=== PATIENT | male | born 1950 | race Caucasian/White ===

== ENCOUNTER → 2018-07-16 | Outpatient (CLI) | payer MEDICARE ==
[2015-09-23 10:52] VITALS: BMI 33.6
[~2018-07-16] MED LIST: ASPI-757 PO; CELE-1 PO; HYDR-318 PO; HYDR-385 PO; HYDR-653 PO; LISI20TA29 PO; METF-450 PO; METO25TA23 PO; METO25TA93 PO; ORAL DIABETES MED
--- NOTE | 2018-07-16 17:03 | RADIOLOGY IMAGING REPORT ---
FACILITY: [facility] [place] PATIENT NAME: Natalio Farris : 1950 MR: [id number] V: [id number] EXAM DATE: ORDERING PHYSICIAN: DEIRDRE VARGAS TECHNOLOGIST: Location: [facility] Patient: Natalio Farris : 1950 Visit/Account:[id number] Date of Sevice: 07/16/2018 Exam type: ACUTE ABDOMEN SERIES 3 VIEW History: Left-sided abdomen pain, no known injury Comparison: Two view chest August 21, 2015. Findings: There is a mild to moderate amount of fecal material seen throughout colon which can be seen with con stipation. Remainder the bowel gas pattern is nonspecific. There is no evidence of free air beneath hemidiaphragms. No evidence of organomegaly. Just to the left of the L4 vertebral body there is a 3 cm rim calcification of uncertain etiology.. There are mild to moderate spondylotic changes of the thoracolumbar spine. PA view the chest reveals a small amount of platelike atelectasis in the left lung base. No evidence of acute pulmonary infiltrates, pleural effusions or pulmonary edema. Cardiac silhouette is normal in size. IMPRESSION: 1. Mild to moderate amount of fecal material seen throughout colon which can be seen with constipati on There is a 3 cm rim calcification of uncertain etiology projecting just to left of the L4 vertebral b mekhi. This could represent a vascular calcification or calcified mass. Small amount of platelike atelectasis in the left lung base Report Dictated By: Cyndi Stephenson MD at 07/16/2018 4:53 PM Report E-Signed By: Cyndi Stephenson MD at 07/16/2018 4:59 PM WSN:[email or web address]
== END ==
LOC: RAD 12:02
PROVIDERS: ATTEND Family Medicine
DX: J98.11 Atelectasis (principal); R10.817 Generalized abdominal tenderness; M51.87 Other intervertebral disc disorders, lumbosacral region
CPT/HCPCS: 74022

== ENCOUNTER 2018-08-12 07:07 | Emergency (ER) | payer MEDICARE ==
[2015-09-23 10:52] VITALS: Wt 104.3 kg
[2018-08-12] MEDS ORDERED: ONDANSETRON 4 MG/2 ML VIAL IVP ONE (07:40)
[2018-08-12] MEDS ORDERED: NS(*) 0.9% 1000 ML BAG 1,000 ML IV ONE ×2 (07:40→09:45)
[2018-08-12 07:46] LABS: PLATELET COUNT, AUTOMATED 333 K/uL (150-450)
--- NOTE | 2018-08-12 07:59 | ER Report ---
History and Physical Time Seen By MD: 07:25 Hx. of Stated Complaint: ozempic med dc'd 2 weeks ago, pt continues to be sick to stomach, poor appetite fevers nausea, constipation and fatigue. 2 days ago last bm. pain ruq abdo. HPI/ROS CHIEF COMPLAINT: Abdominal pain HISTORY OF PRESENT ILLNESS: 68-year-old male diabetic, hypertension, hyperlipidemia, was trialed on Ozempic (semaglutide) but reacted to the injection and stopped 2 weeks ago. He has had 2 weeks of ongoing abdominal pain. Pain is right upper quadrant, does not radiate, has been constant for 2 weeks, is dull and achy, is 5 out of 10, and patient notes no exacerbating or relieving factors. Specifically he states he does not notice a difference when eating. However, patient has been eating very little and primarily soups. This is because of nausea and vomiting. He has had ongoing nausea since soon after abdominal pain started he is had a couple episodes of vomiting, most recently one week ago. Vomiting was nonbloody and nonbilious. Patient has had overall decreased appetite. He was told he had significant constipation and has been taking stool softeners, thus has loose stools that are nonbloody nonblack. He also has noted chills and fever over the past 2 days. This morning he was doing some work when he felt sweaty, nauseous, and fatigued, therefore he presented for further evaluation. He has had no prior abdominal surgeries. He has never had a colonoscopy. He has no known family history of a significant abdominal illness. He denies tobacco use. He admits to alcohol only approximately once weekly. REVIEW OF SYSTEMS: Constitutional: above Eyes: No discharge. ENT: No sore throat. Cardiovascular: No chest pain, no palpitations. Respiratory: No cough, no shortness of breath. Gastrointestinal: above Genitourinary: no dysuria, no change in urination Musculoskeletal: No back pain. Skin: No rashes. Neurological: No headache. Remainder of the 14 system rev: Yes Allergies: Coded Allergies: No Known Drug Allergies (Unverified , 09/15/15) Home Meds Reported Medications Metformin Hcl (METFORMIN HCL) 500 Mg Tablet, 1 TAB PO BID, TAB 09/15/15 Lisinopril (LISINOPRIL) 20 Mg Tablet, 20 MG PO QDAY, TAB 09/15/15 Metoprolol Tartrate (METOPROLOL TARTRATE) 25 Mg Tablet, 2 TAB PO BID, TAB 09/15/15 Discontinued Reported Medications Celecoxib (CELEBREX) 200 Mg Capsule, 200 MG PO BID, CAPSULE TAKE WITH FOOD 09/24/15 Hydrocodone/Acetaminophen (Lortab 7.5-325 mg Tablet) 1 Each Tablet, 1-2 TAB PO Q4-6H PRN for PAIN, #80 09/24/15 Discontinued Scripts Aspirin (ASPIRIN) 325 Mg Tablet, 325 MG PO QDAY, #30 TAB Prov:IRIS HUSSEIN MD 09/24/15 Reviewed Nurses Notes: Yes Old Medical Records Reviewed: Yes Hx Smoking: No Smoking Status: Never Smoker Exposure to Second Hand Smoke?: No Hx Substance Use Disorder: No Hx Alcohol Use: Yes (occ) Constitutional Vital Sign - Last 24 Hours 08/12/18 08/12/18 08/12/18 08/12/18 07:12 07:15 07:22 07:30 Temp 98.4 Pulse 83 81 Resp 16 12 B/P (MAP) 106/70 106/70 (82) 101/70 (80) Pulse Ox 91 90 O2 Delivery Room Air 08/12/18 08/12/18 08/12/18 08/12/18 07:52 07:57 08:00 08:12 Pulse 77 77 75 Resp 11 8 6 B/P (MAP) 89/51 (64) Pulse Ox 89 89 95 08/12/18 08/12/18 08/12/18 08/12/18 08:13 08:20 08:27 08:40 Pulse 73 Resp 15 B/P (MAP) 96/58 (71) 103/67 (79) Pulse Ox 95 O2 Flow Rate 2.0 08/12/18 08/12/18 08/12/18 08/12/18 08:42 08:57 09:00 09:12 Pulse 73 73 72 Resp 12 18 17 B/P (MAP) 105/65 (78) Pulse Ox 96 96 96 08/12/18 08/12/18 08/12/18 08/12/18 09:20 09:27 09:40 09:42 Pulse 74 71 Resp 9 5 B/P (MAP) 105/72 (83) 111/66 (81) Pulse Ox 95 94 08/12/18 10:43 Temp 99.0 Physical Exam General Appearance: The patient is alert, has no immediate need for airway protection and no signs of toxicity. = Eyes: Pupils equal and round no pallor or injection. ENT, Mouth: Mucous membranes are moist. Respiratory: There are no retractions, lungs are clear to auscultation. Cardiovascular: Regular rate and rhythm. Gastrointestinal: abdomen is mildly distended. Pt has ruq ttp with equivocal limon's. He also has rmq, rlq ttp with fullness. No l sided ttp. BS diminished Neurological: alert, moves all ext Skin: Warm and dry, no rashes. Musculoskeletal: Extremities are nontender, nonswollen and have full range of motion. DIFFERENTIAL DIAGNOSIS: After history and physical exam differential diagnosis was considered for abdominal pain including but not limited to appendicitis, cholecystitis, gastritis and urinary tract infection.chest pain including but not limited to myocardial ischemia, pericarditis pulmonary embolus, chest wall pain, pleural inflammation and pulmonary infectious causes. Medical Decision Making Data Points Result Diagram: 08/12/18 0739 08/12/18 0739 Laboratory Hematology Test 08/12/18 07:14 08/12/18 07:39 08/12/18 11:13 Urine Color Jenelle Urine Clarity Cloudy Urine pH 5.0 pH (4.8-9.5) Urine Specific [place] 1.019 Urine Protein 100 mg/dL (NEGATIVE) Urine Glucose (UA) 50 mg/dL (NEGATIVE) Urine Ketones Negative mg/dL (NEGATIVE) Urine Blood Negative (NEGATIVE) Urine Nitrite Negative (NEGATIVE) Urine Bilirubin Negative (NEGATIVE) Urine Urobilinogen Negative mg/dL (0.2-1.9) Urine Leukocyte Esterase Small (NEGATIVE) Urine RBC 1 /HPF (0-2/HPF) Urine WBC 16 /HPF (0-5/HPF) Urine Squamous Epithelial Cells Many /LPF (</=FEW) Urine Transitional Epithelial Cells Few /LPF (NONE-FEW) Urine Bacteria Few /HPF (NONE-FEW) Urine Hyaline Casts Few /LPF (NONE-FEW) Urine Granular Casts Many /LPF (NONE) Urine Mucus Few /HPF (NONE-FEW) Red Blood Count 4.27 M/uL (4.00-5.60) Mean Corpuscular Volume 86.0 fL (80.0-96.0) Mean Corpuscular Hemoglobin 29.1 pg (26.0-33.0) Mean Corpuscular Hemoglobin Concent 33.8 g/dL (32.0-36.0) Red Cell Distribution Width 14.2 % (11.5-14.5) Mean Platelet Volume 8.0 fL (7.2-11.1) Neutrophils (%) (Auto) 78.2 % (39.4-72.5) Lymphocytes (%) (Auto) 9.6 % (17.6-49.6) Monocytes (%) (Auto) 11.4 % (4.1-12.4) Eosinophils (%) (Auto) 0.1 % (0.4-6.7) Basophils (%) (Auto) 0.7 % (0.3-1.4) Nucleated RBC Relative Count (auto) 0.0 /100WBC Neutrophils # (Auto) 9.0 K/uL (2.0-7.4) Lymphocytes # (Auto) 1.1 K/uL (1.3-3.6) Monocytes # (Auto) 1.3 K/uL (0.3-1.0) Eosinophils # (Auto) 0.0 K/uL (0.0-0.5) Basophils # (Auto) 0.1 K/uL (0.0-0.1) Nucleated RBC Absolute Count (auto) 0.00 K/uL Prothrombin Time 13.5 seconds (12.0-14.4) Prothromb Time International Ratio 1.03 Activated Partial Thromboplast Time 31 seconds (23-35) Sodium Level 137 mmol/L (137-145) Potassium Level 4.5 mmol/L (3.5-5.0) Chloride Level 98 mmol/L (98-107) Carbon Dioxide Level 23 mmol/L (22-30) Blood Urea Nitrogen 36 mg/dl (9-21) Creatinine 1.90 mg/dl (0.66-1.25) Glomerular Filtration Rate Calc 35.3 Random Glucose 172 mg/dl (75-110) Calcium Level 11.1 mg/dl (8.4-10.2) Total Bilirubin 0.6 mg/dl (0.2-1.3) Aspartate Amino Transf (AST/SGOT) 16 U/L (0-35) Alanine Aminotransferase (ALT/SGPT) 30 U/L (0-56) Alkaline Phosphatase 65 U/L (0-126) Troponin I < 0.012 ng/ml Total Protein 7.2 g/dl (6.3-8.2) Albumin 4.0 g/dl (3.5-5.0) Lipase 53 U/L (23-300) Whole Blood Glucose 149 mg/DL (75-110) Chemistry Test 08/12/18 07:14 08/12/18 07:39 08/12/18 11:13 Urine Color Jenelle Urine Clarity Cloudy Urine pH 5.0 pH (4.8-9.5) Urine Specific [place] 1.019 Urine Protein 100 mg/dL (NEGATIVE) Urine Glucose (UA) 50 mg/dL (NEGATIVE) Urine Ketones Negative mg/dL (NEGATIVE) Urine Blood Negative (NEGATIVE) Urine Nitrite Negative (NEGATIVE) Urine Bilirubin Negative (NEGATIVE) Urine Urobilinogen Negative mg/dL (0.2-1.9) Urine Leukocyte Esterase Small (NEGATIVE) Urine RBC 1 /HPF (0-2/HPF) Urine WBC 16 /HPF (0-5/HPF) Urine Squamous Epithelial Cells Many /LPF (</=FEW) Urine Transitional Epithelial Cells Few /LPF (NONE-FEW) Urine Bacteria Few /HPF (NONE-FEW) Urine Hyaline Casts Few /LPF (NONE-FEW) Urine Granular Casts Many /LPF (NONE) Urine Mucus Few /HPF (NONE-FEW) White Blood Count 11.5 k/uL (4.5-11.0) Red Blood Count 4.27 M/uL (4.00-5.60) Hemoglobin 12.4 g/dL (14.0-18.0) Hematocrit 36.7 % (42.0-52.0) Mean Corpuscular Volume 86.0 fL (80.0-96.0) Mean Corpuscular Hemoglobin 29.1 pg (26.0-33.0) Mean Corpuscular Hemoglobin Concent 33.8 g/dL (32.0-36.0) Red Cell Distribution Width 14.2 % (11.5-14.5) Platelet Count 333 K/uL (150-450) Mean Platelet Volume 8.0 fL (7.2-11.1) Neutrophils (%) (Auto) 78.2 % (39.4-72.5) Lymphocytes (%) (Auto) 9.6 % (17.6-49.6) Monocytes (%) (Auto) 11.4 % (4.1-12.4) Eosinophils (%) (Auto) 0.1 % (0.4-6.7) Basophils (%) (Auto) 0.7 % (0.3-1.4) Nucleated RBC Relative Count (auto) 0.0 /100WBC Neutrophils # (Auto) 9.0 K/uL (2.0-7.4) Lymphocytes # (Auto) 1.1 K/uL (1.3-3.6) Monocytes # (Auto) 1.3 K/uL (0.3-1.0) Eosinophils # (Auto) 0.0 K/uL (0.0-0.5) Basophils # (Auto) 0.1 K/uL (0.0-0.1) Nucleated RBC Absolute Count (auto) 0.00 K/uL Prothrombin Time 13.5 seconds (12.0-14.4) Prothromb Time International Ratio 1.03 Activated Partial Thromboplast Time 31 seconds (23-35) Glomerular Filtration Rate Calc 35.3 Calcium Level 11.1 mg/dl (8.4-10.2) Total Bilirubin 0.6 mg/dl (0.2-1.3) Aspartate Amino Transf (AST/SGOT) 16 U/L (0-35) Alanine Aminotransferase (ALT/SGPT) 30 U/L (0-56) Alkaline Phosphatase 65 U/L (0-126) Troponin I < 0.012 ng/ml Total Protein 7.2 g/dl (6.3-8.2) Albumin 4.0 g/dl (3.5-5.0) Lipase 53 U/L (23-300) Whole Blood Glucose 149 mg/DL (75-110) Coagulation Test 08/12/18 07:39 Prothrombin Time 13.5 seconds Prothromb Time International Ratio 1.03 Activated Partial Thromboplast Time 31 seconds Urinalysis Test 08/12/18 07:14 Urine Color Jenelle Urine Clarity Cloudy Urine pH 5.0 pH (4.8-9.5) Urine Specific [place] 1.019 Urine Protein 100 mg/dL (NEGATIVE) Urine Glucose (UA) 50 mg/dL (NEGATIVE) Urine Ketones Negative mg/dL (NEGATIVE) Urine Blood Negative (NEGATIVE) Urine Nitrite Negative (NEGATIVE) Urine Bilirubin Negative (NEGATIVE) Urine Urobilinogen Negative mg/dL (0.2-1.9) Urine Leukocyte Esterase Small (NEGATIVE) Urine RBC 1 /HPF (0-2/HPF) Urine WBC 16 /HPF (0-5/HPF) Urine Squamous Epithelial Cells Many /LPF (</=FEW) Urine Transitional Epithelial Cells Few /LPF (NONE-FEW) Urine Bacteria Few /HPF (NONE-FEW) Urine Hyaline Casts Few /LPF (NONE-FEW) Urine Granular Casts Many /LPF (NONE) Urine Mucus Few /HPF (NONE-FEW) EKG/Imaging EKG Interpretation 12 lead EKG: Rhythm: normal sinus rhythm [place]: normal QRS: normal ST segments: borderline st elevation ii, iii, avf. Q wave III. NSR with boderline inf st elevation. However no sig change compared to 08/21/15 [ ] Monitor Interpretation: Normal Sinus Rhythm ED Course/Re-evaluation ED Course Pt presents with right sided abdominal pain, nausea, decreased appetite that he attributes to trial of recent dm med, however findings revealing for max-cecal abscess. Imaging findings also consistent with lytic lesions of bone concerning for MM (likely etiology of pt's hypercalcemia) Both of these discussed with patient. I consulted general surgery though pt would likely need IR drainage and transfer. Zosyn adminsitered; pt remains hd stable and surgeon coordinates transfer to [facility]. Decision to Disposition Date: Aug 12, 2018 Decision to Disposition Time: 15:30 Depart Departure Latest Vital Signs Vital Signs Date Time Temp Pulse Resp B/P (MAP) Pulse Ox O2 Delivery O2 Flow Rate FiO2 08/12/18 10:43 99.0 08/12/18 09:42 71 5 94 08/12/18 09:40 111/66 (81) 08/12/18 08:13 2.0 08/12/18 07:12 Room Air Impression: Primary Impression: Intra-abdominal abscess Additional Impressions: Hypercalcemia Lytic bone lesions on xray Condition: Improved Disposition: XFER TO [facility] Problem Qualifiers LAKIA WORKMAN MD Aug 12, 2018 07:59
[2018-08-12 08:13] LABS: INR 1.03
--- NOTE | 2018-08-12 08:23 | EKG ---
FACILITY: [facility] [place] PATIENT NAME: REED BOTOH : [id number] MR: [id number] V: [id number] EXAM DATE: ORDERING PHYSICIAN: LAKIA WORKMAN TECHNOLOGIST: CHIP Test Reason : STOMACH PAIN Blood Pressure : / mmHG Vent. Rate : 076 BPM Atrial Rate : 076 BPM P-R Int : 188 ms QRS Dur : 098 ms QT Int : 380 ms P-R-T Axes : 034 038 044 degrees QTc Int : 427 ms Normal sinus rhythm Cannot rule out Inferior infarct , age undetermined Less than [address] elevation inferiorly When compared with ECG of 21-AUG-2015 14:34, Now with q wave in III Confirmed by SAMMIE EVANGELISTA ([id number]) on 08/12/2018 10:57:48 AM Referred By: JACINTA Confirmed By:SAMMIE EVANGELISTA
--- NOTE | 2018-08-12 09:38 | RADIOLOGY IMAGING REPORT ---
FACILITY: [facility] [place] PATIENT NAME: Natalio Farris : 1950 MR: [id number] V: [id number] EXAM DATE: ORDERING PHYSICIAN: LAKIA WORKMAN TECHNOLOGIST: Location: [facility] [place] Patient: Natalio Farris : 1950 Visit/Account:[id number] Date of Sevice: 08/12/2018 Technique: GALLBLADDER HISTORY: ruq ttp, + felix's Comparison: None Technique: Multiple grayscale, color and Doppler sonographic images were obtained for an ultrasound o f the right upper quadrant. Findings: The liver is enlarged in size measuring 18.2 cm. There is normal hepatopedal portal venous flow. Gallbladder wall thickness is 2 mm with no evidence of shadowing stone or sludge within the gallbladd er lumen. Negative sonographic Felix's sign reported by the technologist. The gallbladder is contrac danie in appearance consistent with recent meal. Common duct measures 4 mm in maximum diameter with no evidence of shadowing stone. Imaged portions of the pancreas are unremarkable. Abdominal aorta and IVC are patent and unremarkable. The right kidney is normal in size, contour, and echotexture measuring 11.9 cm x 6.2 cm x 5.4 cm. Simple appearing right-sided renal cysts are noted. IMPRESSION: 1. Hepatomegaly. 2. No evidence of cholelithiasis. Report Dictated By: Tom Bruner DO at 08/12/2018 9:30 AM Report E-Signed By: Tom Bruner DO at 08/12/2018 9:35 AM WSN:[id number]
[2018-08-12] MEDS ORDERED: IOPAMIDOL 76% 75 ML INFUS BTL 0 ML ONE (09:55)
--- NOTE | 2018-08-12 11:29 | RADIOLOGY IMAGING REPORT ---
FACILITY: [facility] PATIENT NAME: Natalio Farris : 1950 MR: [id number] V: [id number] EXAM DATE: ORDERING PHYSICIAN: LAKIA WORKMAN TECHNOLOGIST: Location: [facility] Patient: Natalio Farris : 1950 Visit/Account:[id number] Date of Sevice: 08/12/2018 CT abdomen and pelvis without contrast Indication: Right-sided abdominal pain, leukocytosis Comparison: Ultrasound examination of the abdomen from today. Technique: Axial CT images are obtained through the abdomen and pelvis. Reformatted coronal and sagit florencia images were reviewed. IV contrast was not administered. One of the following dose optimization te chniques was utilized in the performance of this exam: Automated exposure control; adjustment of the mA and/or kV according to the patient's size; or use of an iterative reconstruction technique. Spec [facility] details can be referenced in the facility's radiology CT exam operational policy. Findings: Lower lung geiger: Limited views lower lung field are unremarkable. Evaluation of the solid organs of the abdomen is limited without IV contrast. Liver: Nonspecific low-density region seen in hepatic segment 2 which measures 4.5 mm. This is too sm all to characterize. A second low-density region is seen within hepatic segment 7 measuring 5 mm. Biliary: Gallbladder appears unremarkable as well as the intra and extra hepatic biliary system. Pancreas: Normal appearance. Spleen: No acute finding Adrenal glands: Unremarkable. Kidneys / retroperitoneum: No acute finding. Simple appearing mid pole cyst on the right. Bowel / peritoneum / mesenteries: There is a gas containing, large intra-abdominal abscess which has direct communication with the medial anterior wall of the cecum image 92/161. This traverses anterior ly and superiorly to the left measuring maximum dimensions of 8.6 x 3.4 x 5.0 cm. This directly abuts the anterior inferior wall the third portion of the duodenum superiorly and ileum along its anterior inferior border. There is extensive diverticular changes of the descending and proximal sigmoid colon. Lymph node assessment: No lymphadenopathy by size criteria. Pelvic structures: No acute finding Vessels: Mild atherosclerotic calcifications seen throughout a nonaneurysmal abdominal aorta and bran ches. Musculoskeletal / Body wall: There is a expansile, soft tissue mass which replaces the anterior porti on of the left eighth rib. This measures 2.4 x 4.9 cm appears to be lytic foci posterior left ninth r ib. An additional lytic focus is noted yet within the right aspect of the L3 vertebra. Lytic focus is noted within the right sacral ala and proximal left femur. There is no superimposed pathologic fract ure noted. IMPRESSION: 1. There is a large intra-abdominal abscess within the right lower quadrant measuring 8.6 x 3.4 x 5.0 cm. This has direct communication with the medial wall of the cecum and abuts the anterior aspect of the third portion of the duodenum and multiple ileal loops in the right lower quadrant. Unclear whet her this represents direct perforation of the cecum versus perforated appendicitis. 2. Expansile soft tissue lesion within the left eighth rib with multifocal lytic foci within the bony structures highly concerning for sequelae of multiple myeloma. Results were called to Dr. LAKIA WORKMAN at 08/12/2018 11:24 AM. Report Dictated By: Milton Moore MD at 08/12/2018 10:58 AM Report E-Signed By: Milton Moore MD at 08/12/2018 11:24 AM WSN:[id number]
[2018-08-12] MEDS ORDERED: PIPERACILLIN/TAZO* 4.5 GM VIAL 4.5 GM in NS(*) 0.9% 100 ML ADDVANT BAG 100 ML IVPB ONE (11:35)
--- NOTE | 2018-08-12 12:27 | Gen Surgery History & Physical ---
History of Present Illness Chief Complaint Intraabdominal abscess History of Present Illness 59 yo M presents to ED with c/o fevers, chills, and abdominal pain. States he has had "GI issues" for >1 month with intermittent pain, nausea, poor appetite. He was seen by his PCP and started on miralax for constipation. He states he felt slightly better but then started having worsening RLQ in the last week. This was associated with nausea, emesis, fevers. He reports having diarrhea BM, but he has been taking miralax continually. He denies blood BM. He denies dysuria, hematuria. He has never had a colonoscopy. He came to the ED today wh ere he was found to have a leukocytosis to 11.5K and a CT scan shows a RLQ abscess measuring 8cm in largest diameter abutting the cecum. Of note, he was also found to have multiple bony lytic lesions concerning for malignancy. History Home Meds Reported Medications Metformin Hcl (METFORMIN HCL) 500 Mg Tablet, 1 TAB PO BID, TAB 09/15/15 Lisinopril (LISINOPRIL) 20 Mg Tablet, 20 MG PO QDAY, TAB 09/15/15 Metoprolol Tartrate (METOPROLOL TARTRATE) 25 Mg Tablet, 2 TAB PO BID, TAB 09/15/15 Discontinued Reported Medications Celecoxib (CELEBREX) 200 Mg Capsule, 200 MG PO BID, CAPSULE TAKE WITH FOOD 09/24/15 Hydrocodone/Acetaminophen (Lortab 7.5-325 mg Tablet) 1 Each Tablet, 1-2 TAB PO Q4-6H PRN for PAIN, #80 09/24/15 Discontinued Scripts Aspirin (ASPIRIN) 325 Mg Tablet, 325 MG PO QDAY, #30 TAB Prov:IRIS HUSSEIN MD 09/24/15 Allergies: Coded Allergies: No Known Drug Allergies (Unverified , 09/15/15) Patient History: Patient reports no known family medical history. Review of Systems Constitutional: Fever, Chills, Other (Poor appetite) Gastrointestinal: Nausea, Vomiting, Abdominal Pain Exam General Appearance: Alert, Awake, No Acute Distress Eyes: PERRLA ENT: Normal Cardiovascular: Normal Rhythm & Peripheral Pulses, Regular Rate and Rhythm Respiratory: No Respiratory Distress GI: Other (Tenderin RLQ, no guarding, no masses. Small reducible umbilial hernia. ) Musculoskeletal: No Weakness/Pain Extremities: Soft and Non Tender Integumentary: Skin Intact without Lesion / Mass Psych: Alert & Oriented X3, Appropriate Mood & Affect Medical Decision Making Data Points Result Diagram: 08/12/18 0739 08/12/18 0739 Assessment and Plan Problems: (1) Intra-abdominal abscess Assessment & Plan: 08/12/18: Intraabdominal abscess -- ddx includes perforated appendicitis vs diverticulitis vs. occult malignancy. Started on zosyn in ED. Discussed attempted IR drainage of abscess - recommend transfer to [facility] for procedure. If patient improved with drainage, may need further work-up with colonoscopy and/or contrasted imaging. For lytic bone lesions, will need further work-up, but may be done as outpatient after acute infection resolved. Venous Thromboembolism Antithrombotics Is Pt On Any Antithrombotics?: No ANNA MANRIQUEZ MD Aug 12, 2018 12:27
[2018-08-12 13:40] VITALS: BP 119/62
[2018-08-12] MEDS ORDERED: ACETAMINOPHEN 325 MG TAB PO ONE (14:20)
== END 2018-08-12 15:00 | disposition short-term general hospital (02) ==
LOC: ER 07:50
DX: K65.1 Peritoneal abscess (principal); E83.52 Hypercalcemia; M89.9 Disorder of bone, unspecified; E11.9 Type 2 diabetes mellitus without complications; I10 Essential (primary) hypertension; E78.5 Hyperlipidemia, unspecified
CPT/HCPCS: 36416; 74176; 76705; 81001; 82948; 83690; 84484; 85025; 85610; 85730; 93005; 96361; 96365; 96375; 99285; A9270; J2405; J2543; J7030; J7050; 82040; 82247; 82310; 82374; 82435; 82565; 82947; 84075; 84132; 84155; 84295; 84450; 84460; 84520; Q9967

== ENCOUNTER → 2018-08-12 | Outpatient (CLI) | payer MEDICARE ==
[2015-09-23 10:52] VITALS: BMI 33.6
== END ==
LOC: AMB 15:08
PROVIDERS: ATTEND Nurse Practitioner
DX: R50.9 Fever, unspecified (principal); E11.9 Type 2 diabetes mellitus without complications
CPT/HCPCS: A0425; A0426

== ENCOUNTER 2018-11-01 02:28 | Day surgery (SDC) | payer MEDICARE ==
[2015-09-23 10:52] VITALS: Ht 172.7 cm; Wt 101.6 kg
[~2018-11-01] VITALS: Ht 172.7 cm; Wt 101.6 kg
[2018-11-01] MEDS ORDERED: LIDOCAINE/SOD BICARB 8.4% SYR ID ONE (06:00)
[2018-11-01] MEDS ORDERED: NORMOSOL R SOLN(*) 1000 ML BAG 1,000 ML IV PRN (06:00)
[2018-11-01] MEDS ORDERED: MIDAZOLAM 2 MG/2 ML VIAL IVP PRN (06:00)
[2018-11-01] MEDS ORDERED: HEPARIN SOD LCK FLSH 100 UN/ML ONE (06:24)
[2018-11-01 06:33] VITALS: BP 132/66
--- NOTE | 2018-11-01 06:38 | NUR ---
SPOKE WITH [facility] ABOUT CBCD ORDERS. THEY STATED THEY WILL GET THE ORDER IN AND CALL LAB TO NOTIFY THEM.
[2018-11-01] MEDS ORDERED: LIDOCAINE 1%MDV(*)200 MG/20 ML 1 ML ONE (06:44)
[2018-11-01] MEDS ORDERED: PROPOFOL EMUL(*) 10MG/ML 20 ML 0 ML ONE (06:50)
[2018-11-01 07:05] LABS: PLATELET COUNT, AUTOMATED 288 K/uL (150-450)
[2018-11-01 07:46] VITALS: BP 100/66
--- NOTE | 2018-11-01 07:58 | Short(Outpt) Discharge Summary ---
Discharge Summary Reason for Hosp/Final Diag: (1) Plasmacytoma Hospital Course & Plan: Bone marrow bx/aspiration completed without problems. Departure Discharge to: Home, Self Care Discharge Instructions Home Meds Reported Medications Metformin Hcl (METFORMIN HCL) 500 Mg Tablet, 2000 TAB PO QDAY, TAB 09/15/15 Lisinopril (LISINOPRIL) 20 Mg Tablet, 20 MG PO QDAY, TAB 09/15/15 Metoprolol Tartrate (METOPROLOL TARTRATE) 25 Mg Tablet, 1 TAB PO BID, TAB 09/15/15 Diet: Regular Activity: As Tolerated Special Instructions: You may remove the band-aid on 11/02/18, then you can shower. After showering, leave the incision open to air but leave the steristrip in place until it falls off on its own. Do not immerse the incision for 1 week. You can use ice, tylenol, and ibuprofen for pain control. Follow up with Dr. Reza in 2 weeks to discuss the results of this test. SHIRA JEONG MD Nov 01, 2018 07:58
--- NOTE | 2018-11-01 08:03 | Post Operative Progress Note ---
Post Operative Progress Note Date: Nov 01, 2018 Time: 07:58 Surgeon: Heraclio Dictation number: [id number] Anesthesia: TIVA by Dr. Thompson Pre-Op Diagnosis: Bone marrow abnormalities Post-Op Diagnosis: WINSTON Findings: Good spicule formation Procedure(s): Bone marrow biopsy/aspiration Specimen Removed:(May be N/A): 20cc bone marrow 2 1.5cm core samples of bone marrow Complications: None Fluids: See anesthesia record Estimated Blood Loss: Minimal Date OP Note Dictated: Nov 01, 2018 Time OP Note Dictated: 08:00 SHIRA JEONG MD Nov 01, 2018 08:03
[2018-11-01] MEDS ORDERED: fentaNYL CITR 100 MCG/2 ML AMP ONE (08:13)
[2018-11-01] MEDS ORDERED: SUCCINYLCHOL CHL 200MG/10ML VL ONE (08:14)
[2018-11-01] MEDS ORDERED: KETAMINE HCL-NS 50 MG/5 ML SYR ONE (08:14)
[2018-11-01] MEDS ORDERED: PROPOFOL EMUL(*) 10MG/ML 20 ML 20 ML ONE (08:14)
[2018-11-01] MEDS ORDERED: ROCURONIUM BROM 10 MG/ML 10 ML ONE (08:14)
[2018-11-01] MEDS ORDERED: ONDANSETRON 4 MG/2 ML VIAL ONE (08:14)
[2018-11-01] MEDS ORDERED: DEXAMETHASONE SOD PHOS 10MG/ML ONE (08:14)
[2018-11-01] MEDS ORDERED: LIDOCAINE MPF 1% 5 ML VIAL ONE (08:14)
[2018-11-01 08:15] VITALS: BP 113/58
[2018-11-01 08:46] VITALS: BP 109/73
[2018-11-01 08:48] VITALS: BP 127/78
[2018-11-01 08:49] VITALS: BP 118/71
--- NOTE | 2018-11-01 09:10 | OPERATIVE REPORT 1 ---
EVENT DATE: November 01, 2018 SURGEON: Juan Jose Pulliam MD ANESTHESIOLOGIST: Esteban Thompson MD ANESTHESIA: TIVA. PREOPERATIVE DIAGNOSIS Bone marrow abnormalities. POSTOPERATIVE DIAGNOSIS Bone marrow abnormalities. PROCEDURE PERFORMED Bone marrow biopsy and aspiration. COMPLICATIONS None. CONDITION Stable. ESTIMATED BLOOD LOSS Minimal. INDICATIONS This is a 68-year old gentleman who is under the care of Dr. Hutton with Hematology/Oncology and he is evaluating him and trying to differentiate between multiple myeloma versus plasmacytoma. He has asked for a bone marrow biopsy to help him facilitate this. DESCRIPTION OF PROCEDURE The patient was brought to the operating room and placed in a right lateral decubitus position on the rlackey and TIV anesthesia was administered. His left posterior/superior iliac spine was prepped and draped in a sterile fashion. A time-out was completed. I injected the skin and then down to the periosteum with 1% lidocaine without epinephrine. I then made a stab incision in the skin and used the bone marrow aspiration needle and accessed the bone marrow cavity and then connected at 20 mL syringe with about 1 mL of heparin in it and aspirated 20 mL of bone marrow. This was passed directly to a laboratory equipment installer, who then began processing it and confirmed it was a good sample with good spicule formation. I then removed the aspiration needle and inserted the core needle and removed two 1.5 cm core samples of bone marrow and these were placed on Telfa and given to the laboratory equipment installer. I then cleaned and dried the skin and placed Steri-Strip over the stab incision and then this was covered with a Band-aid. The patient was then placed in the supine position and put pressures on the site and then brought to the recovery area in good condition, having tolerated the procedure without any apparent problems. MEI
== END 2018-11-01 09:10 | disposition short-term general hospital (02) ==
LOC: OR 02:28
PROVIDERS: ATTEND Surgery
DX: M89.9 Disorder of bone, unspecified (principal); E11.9 Type 2 diabetes mellitus without complications
CPT/HCPCS: 36416; 38222; 82948; 85007; 85027; 88305; J2001; J2250; J2704; J0330; J1100; J2405; J3010; J3490

== ENCOUNTER 2018-11-23 07:41 | Outpatient (RCR) | payer MEDICARE ==
[2015-09-23 10:52] VITALS: Wt 104.1 kg
[2018-10-16 08:51] VITALS: BP 135/82
--- NOTE | 2018-10-16 12:22 | TOBIN CONSULT ---
EVENT DATE: October 16, 2018 CHIEF COMPLAINT/REASON FOR CONSULTATION Newly diagnosed plasmacytoma involving the left lateral anterior rib with significant pain. Tumor size estimated in August at 2.4 x 4[address] scan pending as well as complete lab work and bone marrow biopsy later this week. Left lateral rib core needle biopsy on October 03, 2018, positive for plasma cell neoplasm. Slide stain positive for CD138, lambda light chain, patchy CD56. STAGE Pending. Workup in progress to determine if he has solitary plasmacytoma versus multiple myeloma. HISTORY This is a pleasant 68-year old gentleman who is referred to me by Dr. Hutton to discuss focal radiation therapy for symptomatic plasma cell neoplasm which is presently involving the left anterior rib with significant osteolytic destruction. Patient states that this first recollection of pain in this location was back in June/July time-frame. He had a flu-like illness at that time and heard a popping sound. Approximately four to eight weeks later he began having pain in the left lateral ribs, which has been fairly constant over the last several months. Simultaneously, in August he was experiencing fever and abdominal pain. He was seen in the emergency room at [facility] and diagnosed with acute appendicitis. He was transferred to [facility], where he subsequently had a drain placed and was placed on IV antibiotics. He states he was septic at that time. He was managed predominantly by Dr. Lopez. Three infectious disease physicians were also involved with his care at that time. Patient was discharged after five days of hospitalization and no longer has any fever, chills or abdominal pain. He will be scheduled for appendix removal towards the second half of November. This will be performed at [facility]. The patient has been seen by Dr. Hutton with reference made to his consultation note dated October 08, 2018. Dr. Hutton has requested a bone marrow biopsy on Monday of this week, PET CT scan on of this week. PET CT is scheduled at [facility] and the bone marrow biopsy is at [facility], I believe with Dr. Pulliam. Patient is being seen for initial consultation and radiation therapy, to review radiographic studies and discuss treatment plan. He has an appointment to see Dr. Hutton at the end of this month. MEDICATIONS 1. Ibuprofen 800 mg b.i.d. for symptomatic rib pain. 2. Metformin 500 mg b.i.d. 3. Lisinopril 20 mg daily. 4. Metoprolol 25 mg b.i.d. PAST MEDICAL HISTORY 1. Newly diagnosed plasmacytoma with further workup in progress to determine if patient has multiple myeloma and if the two entities are related. 2. Type 2 diabetes x3 years. 3. Hypertension x3 years. ALLERGIES None. 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 He is seen with his significant other, who is taking notes today. Nonsmoker. Social alcohol use. FAMILY HISTORY Negative for carcinoma. Patient's father in his 30s from alcoholism. Mother had Type 2 diabetes. Patient has one son who lives in [place] and works in the [employer], who is healthy. REVIEW OF SYSTEMS Notable for weight loss of 12 to 20 pounds in the last six months. No headaches. Denies any significant respiratory complaints. He does occasionally have pain with deep inspiration, however. He has pain when he rotates to the left side at night or during the day. Intermittently may experience some numbness or tingling in his hands or feet. Occasional muscle pain. Denies any pain in the lower back or pelvis. His Type 2 diabetes is under fair control by his report. He does see Dr. Moody on a regular basis. 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 PHYSICAL EXAMINATION GENERAL: Pleasant 68-year old gentleman of medium build. VITALS: BP 135/82, pulse 68, respirations 16, O2 sat 92%, weight 230. Karnofsky Performance Status: 90. LUNGS: Clear to auscultation bilaterally. No rales or rubs noted. HEART: Regular. ABDOMEN: Mildly obese with no gross organomegaly, mass or tenderness today. EXTREMITIES: No edema or cyanosis. NEUROLOGICAL: Grossly intact. MUSCULOSKELETAL: Notable for point tenderness over the left lateral ribs. The remainder of the physical exam is unremarkable. IMPRESSION This is a 68-year old gentleman with a soft tissue mass involving the left lateral rib consistent with plasmacytoma on recent biopsy. He is symptomatic from the lesion and appropriately referred for focal radiation therapy. I reviewed those images with the patient in the office today. I think the lesion could easily be treated with tangent beam approach. I would like to acquire computer targeting images on Monday of next week and will utilize the PET CT scan on Monday. He will bring his disk with him when he returns on Monday so we have the raw data set for the radiation planning. He will have bone marrow biopsy and other blood work drawn on Monday of this week to assist Dr. Hutton with the complete picture in regards to whether he has a solitary plasmacytoma or multiple myeloma. I explained the difference between myeloma and plasmacytoma briefly to the patient today. I reviewed the radiographic studies and discussed radiation therapy option. I believe this will be highly effective against the lesion as plasmacytomas are radiosensitive. I recently reviewed the literature for Cabery- Analysis on plasmacytomas from the radiation literature and the optimal radiation dose is based on tumor size, particularly with a soft tissue component. In this case, the ideal dose will be between 30 and 40 Gy, which will be delivered in 15 to 18 fractions. We will get started with the radiation course relatively quickly so the patient may move on with his abdominal surgery the second part of November in [facility]. Patient has a follow up appointment with Dr. Hutton on October 29. All questions were answered to the patient's satisfaction over a 90 minute consultation this morning. Thank you for the referral and excellent records which were provided for us today. MEI
[2018-10-23 15:13] VITALS: BP 142/78
--- NOTE | 2018-10-24 04:33 | ONCOLOGY FOLLOW UP NOTE ---
EVENT DATE: October 23, 2018 CHIEF COMPLAINT/REASON FOR EVALUATION Patient is here to go over the PET/CT images and discuss the radiation therapy plan. He is scheduled to see Dr. Hutton on Monday of next week for final medical oncology recommendations. DIAGNOSIS New diagnosis of plasmacytoma with soft tissue mass involving the left lateral eighth rib. The radiographic significant findings are listed below: 1. Large eighth rib soft tissue mass consistent with plasmacytoma measuring 4.3 cm x 2.7 cm, with associated fracture. Adjacent rib fractures are also noted, which are pathologic and will be included in immediately adjacent radiation portals. 2. Other osteolytic lesions on PET/CT include left ribs 6, 7, 9, and 10, left clavicle with soft tissue mass at 3.7 x 1.9 cm, left scapula, right clavicle. The lesions appear to be pure osteolytic with low SUV activity in the 1.8 to 3.5 range. This is very much consistent with multiple myeloma/plasmacytoma. HISTORY OF PRESENT ILLNESS The patient, his and I reviewed his PET/CT scan. He still has moderate pain over the left lateral ribs and is scheduled to start radiation therapy to that site on Monday of next week. He is also experiencing pain involving the left clavicle and proximal humerus with early bone remodeling on film review at those locations. There is also a soft tissue mass associated with the left clavicle, and subsequently this will also be a target for therapy. Patient consents to focused beam radiation therapy. The relative amount of bone marrow in the treatment field is quite low, in my opinion. The patient can proceed with systemic therapy as advised by Dr. Hutton. Dr. Hutton will see the patient on Monday of next week. All questions were answered to the patient's satisfaction over a 40-minute visit today. He consents to therapy at both sites, which will be completed over a timeframe of approximately 3-1/2 weeks. Patients may experience a temporary faint erythema reaction; however, I do not anticipate any serious side effects from the radiation course, which will be highly focused with CT-directed planning. I reassured the patient today that the treatment is highly effective against myeloma and plasma cells in general. There have also been considerable advances in systemic therapy over the last 10-15 years. He wishes to proceed. No medication changes were indicated today. Patient does appear to understand that he has multiple myeloma at this juncture, due to the osteolytic bone destruction. I believe he was well prepared for that news today from prior discussion by Dr. Hutton and myself. MEI
[~2018-11-23 07:41] MED LIST changes: +ATOR20TA22 PO; +DEX4 PO; +INSU100I30 SQ; +LENA25CA4 PO; +ONDA4TAB9 PO; +TRAM-420 PO
[2018-11-26] MEDS ORDERED: HYDR28OI11 TP (09:04)
[2018-11-26] MEDS ORDERED: DIPH-464 PO (09:04)
[2018-11-26 09:06] VITALS: BP 110/65
== END 2019-01-13 ==
LOC: RAON 07:41
PROVIDERS: ATTEND Radiology Radiation Oncology
DX: Z51.0 Encounter for antineoplastic radiation therapy (principal); C90.30 Solitary plasmacytoma not having achieved remission; E11.9 Type 2 diabetes mellitus without complications; I10 Essential (primary) hypertension
CPT/HCPCS: 77280; 77290; 77336; 77412; G0463; 36415; 77295; 77300; 77334; 82040; 82232; 82247; 82310; 82374; 82435; 82565; 82784; 82947; 83615; 83883; 84075; 84132; 84155; 84165; 84295; 84450; 84460; 84520; 84550; 85025; 99212

== ENCOUNTER → 2019-01-03 | Outpatient (RCR) | payer MEDICARE ==
[2015-09-23 10:52] VITALS: Ht 171.4 cm; Wt 104.1 kg
[2018-10-08 11:19] VITALS: BP 133/85
--- NOTE | 2018-10-09 05:57 | ONCOLOGY CONSULTATION ---
EVENT DATE: October 08, 2018 CHIEF COMPLAINT/REASON FOR VISIT Mr. 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 HISTORY OF PRESENT ILLNESS Mr. Farris presents for initial consultation. I have been extensively involved in his care while he was in [place] prior to seeing him, to coordinate diagnostic workup and labs in preparation for today's visit. Mr. Farris is currently feeling well. His abdominal symptoms have subsided. He has minimal symptoms when going up and down the stairs, as he still has the inflamed appendix. The plan was to remove the appendix in another month. We discussed his diagnosis of a plasmacytoma in detail today. No fevers or chills. I do note his creatinine is elevated at 1.9, but that could have been due to the severity of his infection. Will arrange for initial labs. His calcium was elevated at that time, and we will get these repeated. Of note, his light chains were normal, as was his protein electrophoresis. This could be a nonsecretory myeloma. ONCOLOGY HISTORY His history begins in early August 2018, when he was admitted and diagnosed with an abscess related to the appendix. He has not yet had his appendix removed, but he had the abscess drained. He is doing much better and has no abdominal symptoms currently. During this workup, they found a lesion on the left rib that was lytic/blastic in appearance. A PSA was normal, and his extensive myeloma labs were otherwise unrevealing. Biopsy was done last week, and this showed sheets of plasma cells. This could be a solitary plasmacytoma; however, imaging from [place] demonstrated concern for multiple lytic lesions, and I am concerned that we are missing multiple myeloma. PAST MEDICAL HISTORY Remarkable for: 1. 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 2. Diabetes. 3. Elevated blood pressure/hypertension. 4. Perforated appendix in August 2018. FAMILY HISTORY Remarkable for diabetes in his mother. SOCIAL HISTORY Patient is and here with his significant other today. He has a son who is 31 years old. 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 No drug use or recreational drug use. REVIEW OF SYSTEMS CONSTITUTIONAL: No fevers, chills, significant weight change. HEENT: No headache, vision changes. CARDIOVASCULAR: No chest pain, dyspnea on exertion, edema. RESPIRATORY: No shortness of breath, wheeze, cough. GI: No nausea, vomiting, diarrhea, constipation, abdominal pain. All prior abdominal symptoms have resolved. : No dysuria, hematuria. MUSCULOSKELETAL: No weakness, joint pains. PSYCHIATRIC: No anxiety, depression. HEMATOLOGIC: No bruising, bleeding. SKIN: No concerning rashes or lesions. Remainder of 14-point review of systems otherwise negative. LABORATORY Data is significant for the appearance of an enlarged liver with possible early cirrhosis. His labs do show a hypercalcemia and acute renal failure in August 2018. We have repeat labs pending. His myeloma labs, though, were unremarkable. IMPRESSION/REPORT/PLAN Mr. Farris is a pleasant 68-year-old gentleman with the followin. Solitary plasmacytoma versus multiple myeloma. We need to complete the workup for multiple myeloma with a bone marrow biopsy and a PET scan. Imaging with CT in [place] showed concern for multiple lytic lesions, and thus we need to get the PET scan. An MR survey would be an alternative. We will get basic labs repeated to see if he is recovering from his appendix episode and if the calcium and creatinine are improved. If these are not improved, that raises concern for multiple myeloma as well. At this time, we only know of a solitary plasmacytoma, and I will get him to Dr. Teran to consider radiation. This is painful, and he has a hard time lying on the left side now because of his lesion. We can move forward with radiation as soon as Dr. Teran feels that it is appropriate. 2. Perforated appendix with abscess. He has not yet had the abscess or appendix removed, although it was drained. I agree with pursuing surgery in November as planned. I will allow Dr. Teran and the surgeon to coordinate their respective treatments and the timing of them. I would like to see the patient back approximately three weeks after these tests. Answered all of their many questions today. BILLING New patient level 5. Total time 75 minutes, counseling time 60; high risk, high complexity. MTDD
[2018-10-22 14:30] VITALS: BP 144/77
[2018-10-22 14:50] LABS: PLATELET COUNT, AUTOMATED 312 K/uL (150-450)
[2018-10-29 14:02] VITALS: BP 108/71
--- NOTE | 2018-10-30 14:46 | ONCOLOGY FOLLOW UP NOTE ---
EVENT DATE: October 29, 2018 CHIEF COMPLAINT/REASON FOR VISIT Mr. Farris is a pleasant 78-year-old gentleman with multiple myeloma with bone- predominant disease. HISTORY OF PRESENT ILLNESS Mr. Farris returns. I was extensively involved in his care while he was in [place] prior to seeing him to coordinate his diagnostic workup and labs. His labs look outstanding, but unfortunately, he has numerous areas of bone marrow involvement discovered on imaging with a PET scan. His bone marrow biopsy is scheduled for later this week. Fortunately, his labs look quite well, but his creatinine has been elevated, and I think this may be another sign of his multiple myeloma at this time. His abdominal symptoms have subsided, but he does need to remove the appendix at some point. After discovery of nonsecretory multiple myeloma, I believe we need to get his treatment started and postpone the appendectomy until we have control of his disease and put it in remission. Will notify Dr. Hathaway of this. Overall, Thomas is doing well, but understands the need for therapy. He has radiation therapy to the two painful areas scheduled to start this coming Monday. ONCOLOGY HISTORY History begins in early 2018 when he was diagnosed with an abscess related to his appendix. He has not yet had the appendix removed, but the abscess was drained, and he is doing much better. He has no abdominal symptoms. During this workup, they found a lesion on the left rib that was lytic/blastic in appearance. His PSA was normal, and his extensive myeloma labs were also normal. A biopsy was done, however, and showed that this was a plasma cytoma. PET scan shows numerous other areas including a second growing painful area now. He now has a diagnosis of multiple myeloma, and we plan to use VRd for four cycles with radiation therapy, followed by observation. PAST MEDICAL HISTORY 1. 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 2. Diabetes. 3. Elevated blood pressure/hypertension. 4. Perforated appendix in August 2018. FAMILY HISTORY Remarkable for diabetes in his mother. SOCIAL HISTORY Patient is and here with his significant other today. He has a son who is 31 years old. 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 No drug use or recreational drug use. REVIEW OF SYSTEMS CONSTITUTIONAL: No fevers, chills, significant weight change. HEENT: No headache, vision changes. CARDIOVASCULAR: No chest pain, dyspnea on exertion, edema. RESPIRATORY: No shortness of breath, wheeze, cough. GASTROINTESTINAL: No nausea, vomiting, diarrhea, constipation, abdominal pain. All prior abdominal symptoms have resolved. GENITOURINARY: No dysuria, hematuria. MUSCULOSKELETAL: No weakness, joint pains. PSYCHIATRIC: No anxiety, depression. HEMATOLOGIC: No bruising, bleeding. SKIN: No concerning rashes or lesions. Remainder of 14-point review of systems otherwise negative. PHYSICAL EXAMINATION VITAL SIGNS: Blood pressure 108/71, pulse 76, respiratory rate 16, temperature 96.7 Fahrenheit, oxygen saturation 92% on room air. Weight 104 kg and stable. Pain 5/10. Fatigue tolerable. GENERAL: Stable condition, resting comfortably in the chair. ECOG performance status of 1. HEENT: Normocephalic, atraumatic. CARDIOVASCULAR: Regular rate and rhythm. LUNGS: Clear. ABDOMEN: Soft. No symptoms at this time. Remainder of his physical exam otherwise unremarkable. IMPRESSION/REPORT/PLAN Mr. Farris is a pleasant 68-year-old gentleman with the followin. Multiple myeloma. His bone marrow biopsy is still pending, but his PET scan showed numerous areas of disease involvement. We are going to add Zometa to his treatment plan and will give this monthly for three months and then likely move to quarterly. His PET scan showed very slight PET involvement. We can use bone surveys in the future to follow this to make sure it is not progressive. Plan for four cycles of VRd with radiation concurrently at this time, followed by observation. We discussed the potential side effects of Velcade, Revlimid, and Doxil in great detail today. 2. Perforated appendix with abscess. As he has no symptoms, I would like to postpone the appendectomy if possible. I will send a note to Dr. Hathaway to confirm that we can to this. The patient states that he believes that Dr. Hathaway feels that this will be okay. I answered all of his many questions today. BILLING Return visit level 5. Total time 45 minutes, counseling time 30. MTDD
--- NOTE | 2018-11-02 13:27 | NUR ---
MARK assisted pt with application for Revlamid - since pt did not have a medicare part D to cover any part of the cost. MARK located the [employer] Patient Assistance program. MARK submitted application yesterday 11/01/18, and was approved today (11/02/18). A prescription for the drug will be sent to [facility] and drug will be shipped directly to the pt.
[2018-11-08 13:01] VITALS: BP 127/84
[2018-11-08 14:28] LABS: PLATELET COUNT, AUTOMATED 323 K/uL (150-450)
[2018-11-08] MEDS: LIDOCAINE/SOD BICARB 8.4% SYR ID PRN (14:30)
[2018-11-08] MEDS: NS(*) 0.9% 100 ML BAG 100 ML IVPB PRN (15:00)
[2018-11-08 15:28] VITALS: BP 133/83
--- NOTE | 2018-11-08 22:58 | ONCOLOGY CHEMO TEACHING ---
DATE OF EVENT: November 08, 2018 CHIEF COMPLAINT Mr. Farris is a pleasant 78-year-old gentleman with multiple myeloma with bone- predominant disease. DIAGNOSIS Multiple myeloma. The patient is seen today for chemotherapy teaching. A total of 60 minutes was spent with him, 100% of which was pkvx-[id number] counseling. HISTORY OF PRESENT ILLNESS Mr. Farris returns today for followup and chemotherapy education session for VRd. He is a patient of Dr. Hutton, and Dr. Hutton has been involved in his care extensively while he was in [place] prior to diagnostic workup and labs. His labs look outstanding, but unfortunately, he has numerous areas of bone marrow involvement discovered on imaging with a PET scan. PET scan shows numerous other areas including a second growing painful area. Bone marrow biopsy was done on 11/01/18. Bone marrow aspirate did not reveal any phenotypic evidence of monotypic plasma cell/B-cell, aberrant T-cell, or increased CD34- positive blast population. His creatinine has been elevated, and this may, of course, be another sign of his multiple myeloma. His abdominal symptoms have subsided, but he will need to have his appendix removed. After discovery of nonsecretory multiple myeloma, we believe that his treatment needs to start as soon as possible, and instead we can postpone appendectomy until there is better control of disease, and he is able to be put into remission. Dr. Hutton has communicated with Dr. Hathaway. Thomas and his , Kellie, are both well versed on the need for therapy. He is currently undergoing radiotherapy to two painful areas. He started this last week. His pain has noticeably improved, and he is now able to lie on his left side at night as the left humerus is being radiated. He has better mobility. He does have generalized weakness, and his tells me that his legs feel weak. Patient feels excessively tired after standing on his feet during the day. He continues to work. He will be initiating Day 1, Cycle #1 with VRd today. He is supposed to be getting his delivery of Revlimid later today. ONCOLOGY HISTORY History begins in early 2018 when he was diagnosed with an abscess related to his appendix. He has not yet had the appendix removed, but the abscess was drained, and he is doing much better. He has no abdominal symptoms. During this workup, they found a lesion on the left rib that was lytic/blastic in appearance. His PSA was normal, and his extensive myeloma labs were also normal. A biopsy was done, however, and showed that this was a plasma cytoma. PET scan shows numerous other areas including a second growing painful area now. He now has a diagnosis of multiple myeloma, and we plan to use VRd for four cycles with radiation therapy, followed by observation. PAST MEDICAL HISTORY 1. 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 2. Diabetes. 3. Elevated blood pressure/hypertension. 4. Perforated appendix in August 2018. FAMILY HISTORY Remarkable for diabetes in his mother. SOCIAL HISTORY Patient is and here with his significant other today. He has a son who is 31 years old. 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 No drug use or recreational drug use. ALLERGIES No known drug allergies. MEDICATIONS 1. Atorvastatin 20 mg daily. 2. Insulin/Lantus 10 units q.a.m. 3. Lisinopril 20 mg daily. 4. Metformin 500 mg tablet, 1000 mg b.i.d. 5. Dexamethasone 4 mg tablets, 20 mg on days 1, 8, 15, and 22 out of a 28-day cycle. 6. Revlimid 25 mg on days 1 through 21 of a 28-day cycle. 7. Ondansetron 8 mg ODT one sublingual q.8 hours p.r.n. chemo-induced nausea or vomiting. DISCUSSION 1. A total of 60 minutes was spent in counseling today, 100% of which was face to face. At today's chemotherapy teaching session, we discussed his diagnosis as well as the planned chemotherapy regimen and toxicities associated with VRd: Velcade, Revlimid, and dexamethasone. Patient will take Revlimid daily on days 1 through 21 of a 28-day cycle. Velcade will be given as a subcutaneous injection on days 1, 8, and 15 of a 28-day cycle. Dexamethasone 20 mg total (five tablets) will be taken on days 1, 8, 15, and 22 on a 28-day cycle. 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 2. Side effects and toxicities of chemotherapy agents included, but were not limited to: A. Bone marrow suppression, specifically neutropenia. He is instructed to contact our offices with any signs of infection. CBC will be monitored routinely. We discussed common sense approaches including routine hand washing and avoidance of crowds/sick people if neutropenic. B. GI side effects. Discussed the possibility of nausea, vomiting, diarrhea, and constipation. He will receive IV antiemetics and will be prescribed antiemetics for home use. If he were to have diarrhea, recommended Imodium. If he were to have constipation, recommended Senna-S or MiraLAX routinely. Further interventions will be made based on side effects. C. side effects. Discussed the importance of adequate hydration (minimum 8 cups of fluid per day) and emptying the bladder on a regular basis. IV hydration can be scheduled as needed. D. Mouth sores. Recommended salt water or baking soda gargles as needed. E. Skin toxicity. Discussed that chemotherapy was very drying to the skin and mucous membranes. Recommended routine moisturizing as well as sun protection. F. Neurotoxicity. Discussed symptoms of peripheral neuropathy. He will be monitored of these symptoms and will notify us if progressive. G. Alopecia. We discussed that hair thinning can occur. H. Fatigue. Discussed that this is one of the most common complaints of patients undergoing chemotherapy. I have encouraged him to remain as active as possible, taking frequent rests as needed. I. Infusion reaction. Reviewed IV premedications. He will be monitored closely during infusions. J. Reproductive health: Discussed importance of preventing while on chemotherapy. Discussed control options and fertility preservation, also to abstain from sexual intercourse for two to three days after chemotherapy administration. 3. I have instructed the patient to call our office if he is prescribed any new medications. It is recommended that multiple supplements or herbal medications may not be taken as these may interfere with the action of the chemotherapy. 4. Discussed dietary issues associated with chemotherapy including anorexia and changes in taste. A handout of nutrition information is given. 5. A tour of the infusion room is given. He is given a packet of information including all of the above. Treatment will begin today, with patient receiving Velcade day #1 today, as well as Cycle #1 with Zometa. 6. Diabetic peripheral neuropathy: Patient has a history of diabetes-induced neuropathy, most noticeable to the left foot. He has numbness in the left foot. Discussed that Revlimid and Velcade can certainly increase neuropathy, and he is to alert us if this becomes severe or worsens. 7. Diabetes: Patient reports that his blood sugar has been in the upper 300s for the last week or so. He has two glucometers at home and usually checks this once a day at maximum. He was recently initiated on Lantus 10 units every morning per his PCP, Dr. Moody. Discussed the difficulty and common side effects with dexamethasone and oral corticosteroids in regards to his diabetes. I also gave patient some helpful hints as far as when to recognize hypoglycemia or hyperglycemia. Our radiation nurse is going to help me communicate with Dr. Moody, his PCP, to see if patient can be seen sooner as he does not have a followup appointment for three months from now. He will likely need an adjustment in his insulin and perhaps even sliding scale. 8. Osteolytic bone disease: We discussed Zometa today at length and discussed common side effects as well as risks, to include ONJ. He is aware that he needs to notify us for any dental work. Currently, he has no dental work planned. We discussed the chance for possible infusion reaction related to Zometa, and if this occurs it's usually with the first dose, lasting approximately 24 to 72 hours. Symptoms include flu-like symptoms and even low-grade temperature as high as 100 degrees Fahrenheit. We discussed this at length. He will notify us if this occurs. 9. He will continue with daily radiotherapy. 10. Patient will return to clinic in one week for standard toxicity check. He should be on day 8, Cycle #1 at that time. 11. PPI prophylaxis: He was instructed to start OTC omeprazole 20 mg daily every morning secondary to corticosteroids. MTDD
[2018-11-09 08:26] VITALS: BP 120/75
[2018-11-09] MEDS: NS(*) 0.9% 100 ML BAG 100 ML IVPB PRN (08:39)
[2018-11-09] MEDS: LIDOCAINE/SOD BICARB 8.4% SYR ID PRN (08:40)
[2018-11-09 10:25] VITALS: BP 144/75
[2018-11-15 08:45] VITALS: BP 137/80
--- NOTE | 2018-11-15 09:51 | NUR ---
Pt completed HADS screening. Pt scored: A: 4, D:2. No concerns at this time.
--- NOTE | 2018-11-15 22:43 | ONCOLOGY FOLLOW UP NOTE ---
EVENT DATE: November 15, 2018 CHIEF COMPLAINT Mr. Farris is a pleasant 78-year-old gentleman with multiple myeloma with bone- predominant disease. Recently initiated Velcade, Revlimid, and dexamethasone. HISTORY OF PRESENT ILLNESS Mr. Farris returns today for followup and chemotherapy education session for VRd. He is a patient of Dr. Hutton, and Dr. Hutton has been involved in his care extensively while he was in [place] prior to diagnostic workup and labs. His labs look outstanding, but unfortunately, he has numerous areas of bone marrow involvement discovered on imaging with a PET scan. PET scan shows numerous other areas including a second growing painful area. Bone marrow biopsy was done on 11/01/18. Bone marrow aspirate did not reveal any phenotypic evidence of monotypic plasma cell/B-cell, aberrant T-cell, or increased CD34- positive blast population. His creatinine has been elevated, and this may, of course, be another sign of his multiple myeloma. His abdominal symptoms have subsided, but he does need to remove the appendix at some point. After discovery of nonsecretory multiple myeloma, we believe that he needs to get his treatment started and postpone the appendectomy until we have better control of his disease, and we can place him into remission. He has initiated radiation therapy to two painful areas, which he started on 10/31/18. He initiated Cycle #1, day 1 with VRd on 11/08/18. He is here today to initiate day #8, Cycle #1. He has been tolerating this well. He continues to have some generalized fatigue, but overall tells me that his fatigue is actually improved. He tends to get tired toward the end of the day, but tells me he simply goes home. His tells me that he was shoveling snow this morning. 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 He notices an increase in energy on each dexamethasone day of the week, which he actually likes. His appetite has been good. He has not had any nausea or vomiting. He has not noticed any significant constipation or diarrhea. He does have a history of diabetic peripheral neuropathy, most noticeable in the lower extremities and feet. He has not had any neuropathy in the hands. He noticed one episode of occasional tingling sensations in his fingers a few days ago, but tells me that this was transient and completely resolved. It has not recurred. He is aware that this is a possible side effect with his regimen. He tells me that he really has no pain at all other than some degenerative-type pains. He is actually feeling well. He rates his pain level currently at zero and reports no significant fatigue. Lastly, he does have a history of diabetes and follows up with his PCP, Dr. Moody, for this. He is aware that his blood sugar will certainly become elevated while on this treatment secondary to dexamethasone, and we did help coordinate his PCP adjusting his current insulin dose. Currently, he is on metformin and was on Lantus 10 units daily, though after recent increase in blood sugars up to the high 400s, Dr. Moody has now increased his Lantus to 15 units daily. His blood sugar this morning per patient was around 310. ONCOLOGY HISTORY History begins in early 2018 when he was diagnosed with an abscess related to his appendix. He has not yet had the appendix removed, but the abscess was drained, and he is doing much better. He has no abdominal symptoms. During this workup, they found a lesion on the left rib that was lytic/blastic in appearance. His PSA was normal, and his extensive myeloma labs were also normal. A biopsy was done, however, and showed that this was a plasma cytoma. PET scan shows numerous other areas including a second growing painful area now. He now has a diagnosis of multiple myeloma, and we plan to use VRd for four cycles with radiation therapy, followed by observation. He initiated VRd on 11/08/18. PAST MEDICAL HISTORY 1. 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 2. Diabetes. 3. Elevated blood pressure/hypertension. 4. Perforated appendix in August 2018. FAMILY HISTORY Remarkable for diabetes in his mother. SOCIAL HISTORY Patient is and here with his significant other today. He has a son who is 31 years old. 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 No drug use or recreational drug use. ALLERGIES No known drug allergies. MEDICATIONS 1. Atorvastatin 20 mg daily. 2. Lantus 15 units q.a.m. 3. Lisinopril 20 mg daily. 4. Metformin 500 mg tablet, 1000 mg b.i.d. 5. Dexamethasone 4 mg tablets, 20 mg on days 1, 8, 15, and 22 out of a 28-day cycle. 6. Revlimid 25 mg on days 1 through 21 of a 28-day cycle. 7. Ondansetron 8 mg ODT one sublingual q.8 hours p.r.n. chemo-induced nausea or vomiting. REVIEW OF SYSTEMS CONSTITUTIONAL: He denies any recent fevers, chills, or night sweats. Appetite has been good. He has not noticed any weight change. HEENT: No vision changes. No tinnitus. No epistaxis. No mouth sores. CARDIOVASCULAR: No chest pain. No syncope or presyncope. No palpitations. RESPIRATORY: No cough, sputum production, or hemoptysis. No pleuritic chest pain. GASTROINTESTINAL: No abdominal pain, nausea, vomiting, diarrhea, constipation, bright red blood per rectum, or melena. All prior abdominal symptoms have resolved. Appetite has been great. GENITOURINARY: No dysuria, hematuria, or genitourinary discharge. MUSCULOSKELETAL: He has some degenerative-type pains, and he is currently receiving radiotherapy to the left proximal humerus and the left ribs. He has no new focal areas of pain. PSYCHIATRIC: Patient tells me is in good spirits. He denies any severe depression, severe anxiety, suicidal or homicidal ideation. He is having some difficulty coming to terms with being less active. 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 No easy bruising. DERM: No rash. No suspicious lumps or bumps. He denies any visible skin reaction secondary to Vidaza injections. NEUROLOGIC: He did have one episode of transient intermittent tingling in his fingers a few days ago. This completely resolved. He does have a history of diabetic peripheral neuropathy in his lower extremities, most noticeable in his feet. This is unchanged. The remainder of a 12-point review of systems is performed today and is otherwise negative. PHYSICAL EXAMINATION VITAL SIGNS: Temperature 97.6, P 68, R 16, BP 137/80, oxygen saturation 92% room air. GENERAL: In general, this is a pleasant 78-year-old gentleman who appears well hydrated, well nourished, is in good spirits, and is in no acute distress. HEAD: Normocephalic, atraumatic. EYES: Sclerae anicteric. ENT, MOUTH: No mucositis. No thrush. No significant nasal drainage. NECK: Supple. No lymphadenopathy. No JVD. CARDIOVASCULAR: Regular rate and rhythm. No ectopy. LUNGS: Clear breath sounds to auscultation bilaterally. No wheezes, rales, or rhonchi. ABDOMEN: Soft, nontender, nondistended. Bowel sounds positive x4. NEUROLOGIC: Patient is awake, alert, oriented x3. No focal sensory or motor deficits. PSYCHIATRIC: Mood and affect are appropriate. MUSCULOSKELETAL: Ambulation and gait are steady. DERM: No rash. No petechiae or purpuric eruption. No skin changes visible at prior Vidaza injection site. LABORATORY CBC today: WBC 5.0, ANC 3.6, hemoglobin 12.0, hematocrit 35.5%, platelets 237,000. CMP today: Largely unremarkable with the exception of an elevated glucose at 278. This is improved per patient's report from home glucose this morning of 310. Calcium normal at 9.1. Serum creatinine normal at 0.80. IMPRESSION AND PLAN Mr. Farris is a pleasant 68-year-old gentleman with the followin. Multiple myeloma: Bone marrow biopsy was done on 11/01/18 and was within normal limits. There was no evidence of disease. PET scan, however, did show numerous areas of disease involvement. We have added Zometa to his treatment plan, and we plan on giving this monthly for three months, and then we will likely move this to quarterly. He initiated Cycle #1 with Zometa last week on 11/08/18 as well when he initiated his first day of Velcade, Revlimid, and doxorubicin (VRd). His PET scan showed very slight PET involvement, and we use bone surveys in the future to follow this and make sure it is not progressive. He is aware that our current plan is for four cycles of Velcade, Revlimid, and doxorubicin (VRd) with radiation concurrently at this time, followed by observation. 2. Perforated appendix with abscess: Currently, abdominal symptoms have resolved. Plan is to postpone appendectomy if possible. Dr. Hutton has discussed this with Dr. Hathaway. 3. Diabetes, recently worsening hyperglycemia: We have coordinated with his primary care physician, Dr. Moody, who is managing this. His daily Lantus dose was just increased approximately four days ago up to 15 units per day. His blood sugar is responding well, and he is now in the mid 200 range. This is definitely an improvement from the upper 400s. Dr. Moody will be monitoring him closely. Thought process per his primary care physician is to slowly decrease his Lantus so as not to dramatically drop this and cause severe hypoglycemia and worsening of his diabetes. They are aware that they will need to follow up with Dr. Moody. 4. Patient will return to clinic next week for repeat labs, followup with either myself or Dr. Hutton, and for day 15, Cycle #1. He is aware that there was some scheduling changes due to recent weather. Either way, I have assured patient that I will communicate with his medical oncologist, Dr. Hutton. [facility]
--- NOTE | 2018-11-20 22:42 | ONCOLOGY FOLLOW UP NOTE ---
EVENT DATE: November 19, 2018 CHIEF COMPLAINT Mr. Farris is a pleasant 68-year-old gentleman with multiple myeloma with bone- predominant disease. Recently initiated Velcade, Revlimid, and dexamethasone. He has completed Day 8 of Cycle #1. He will be due for Day 15 later this week on . HISTORY OF PRESENT ILLNESS Mr. Farris returns today for followup and chemotherapy education session for [facility]. He is a patient of Dr. Hutton, and Dr. Hutton has been involved in his care extensively while he was in [place] prior to diagnostic workup and labs. His labs look outstanding, but unfortunately, he has numerous areas of bone marrow involvement discovered on imaging with a PET scan. PET scan shows numerous other areas including a second growing painful area. Bone marrow biopsy on 11/02/18 revealed plasma cell myeloma, lambda restricted, involving 15% of bone marrow. FISH revealed positive -13q deletion and 16q- deletion, as well as variant t(11;14). The t(11;14) is associated with a standard risk disease in plasma cell myeloma. His creatinine has been elevated, and this, of course, may be another sign of multiple myeloma. His abdominal symptoms have subsided. At some point, he will likely need to have his appendix removed. After discovery of nonsecretory multiple myeloma, we believe that he needed to start treatment as soon as possible and postpone appendectomy until we have better control of his disease. We can then hopefully place him into remission. He was initiated on radiotherapy to two painful areas to include the left humerus. His pain has significantly improved. He is now able to roll over at night comfortably. He is not using any pain medications. He has now completed two weekly doses of Cycle #1 with VRd and is due for Day 15 later this week. His fatigue has improved. He does still become tired towards the end of the day, but he simply goes home from work and rests. He was even shoveling snow last week. He notices an increase in energy on the day of the week when he takes his dexamethasone, which he likes. His appetite has been good. He has not had any nausea or vomiting. No significant constipation or diarrhea. He has a history of diabetic peripheral neuropathy, most noticeable in the lower extremities and feet. He has not had any new or worsening neuropathy symptoms, to include none in the hands. He did have one episode of occasional tingling in his fingers a few days ago, but this was transient and has not recurred. He is aware that this is a possible side effect of this current regimen. Other than some degenerative-type pains, he is feeling quite well. He rates his pain level at zero and only reports some fatigue. Lastly, he has a history of diabetes and follows up with his PCP, Dr. Moody, for this. His blood sugars have been quite high recently with oral dexamethasone certainly contributing to that. We helped coordinate his insulin dose with his PCP, and he has recently been increased up to Lantus 15 units daily. His blood sugars have decreased down to the low 300s and mid 250s. This is greatly improved. He is here to formally review bone marrow biopsy results as this was not done at his last visit. On my prior note from 11/15/18, there is error in which bone marrow results are described as being negative. This was an error as there was a different bone marrow biopsy result in the chart. No treatment was changed based on that report, and again, patient is here to formally discuss bone marrow biopsy results. Dr. Hutton has seen his actual biopsy results, and he and I have discussed his case. ONCOLOGY HISTORY History begins in early 2018 when he was diagnosed with an abscess related to his appendix. He has not yet had the appendix removed, but the abscess was drained, and he is doing much better. He has no abdominal symptoms. During this workup, they found a lesion on the left rib that was lytic/blastic in appearance. His PSA was normal, and his extensive myeloma labs were also normal. A biopsy was done, however, and showed that this was a plasma cytoma. PET scan shows numerous other areas including a second growing painful area now. He now has a diagnosis of multiple myeloma, and we plan to use VRd for four cycles with radiation therapy, followed by observation. He initiated VRd on 11/08/18. PAST MEDICAL HISTORY 1. 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 2. Diabetes. 3. Elevated blood pressure/hypertension. 4. Perforated appendix in August 2018. FAMILY HISTORY Remarkable for diabetes in his mother. SOCIAL HISTORY Patient is and here with his significant other today. He has a son who is 31 years old. 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 No drug use or recreational drug use. ALLERGIES No known drug allergies. MEDICATIONS 1. Atorvastatin 20 mg daily. 2. Lantus 15 units q.a.m. 3. Lisinopril 20 mg daily. 4. Metformin 500 mg tablet, 1000 mg b.i.d. 5. Dexamethasone 4 mg tablets, 20 mg on days 1, 8, 15, and 22 out of a 28-day cycle. 6. Revlimid 25 mg on days 1 through 21 of a 28-day cycle. 7. Ondansetron 8 mg ODT one sublingual q.8 hours p.r.n. chemo-induced nausea or vomiting. REVIEW OF SYSTEMS CONSTITUTIONAL: He denies any recent fevers, chills, or night sweats. Appetite has been good. He has not noticed any weight change. HEENT: No vision changes. No tinnitus. No epistaxis. No mouth sores. CARDIOVASCULAR: No chest pain. No syncope or presyncope. No palpitations. RESPIRATORY: No cough, sputum production, or hemoptysis. No pleuritic chest pain. GASTROINTESTINAL: No abdominal pain, nausea, vomiting, diarrhea, constipation, bright red blood per rectum, or melena. All prior abdominal symptoms have resolved. Appetite has been great. GENITOURINARY: No dysuria, hematuria, or genitourinary discharge. MUSCULOSKELETAL: He has some degenerative-type pains, and he is currently receiving radiotherapy to the left proximal humerus and the left ribs. He has no new focal areas of pain. PSYCHIATRIC: Patient tells me is in good spirits. He denies any severe depression, severe anxiety, suicidal or homicidal ideation. He is having some difficulty coming to terms with being less active. 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 No easy bruising. DERM: No rash. No suspicious lumps or bumps. He denies any visible skin reaction secondary to Vidaza injections. NEUROLOGIC: He did have one episode of transient intermittent tingling in his fingers a few days ago. This completely resolved. He does have a history of diabetic peripheral neuropathy in his lower extremities, most noticeable in his feet. This is unchanged. ENDOCRINE: His blood sugars have been coming down. The remainder of a 12-point review of systems is performed today and is otherwise negative. PHYSICAL EXAMINATION VITAL SIGNS: Weight 102.6 pounds. T 97.1, P 64, R 16, BP 115/70, oxygen saturation 90% room air. GENERAL: In general, this is a pleasant 68-year-old gentleman who appears well hydrated, well nourished, is in good spirits, and is in no acute distress. HEAD: Normocephalic, atraumatic. EYES: Sclerae anicteric. ENT, MOUTH: No mucositis. No thrush. No significant nasal drainage. NECK: Supple. No lymphadenopathy. No JVD. CARDIOVASCULAR: Regular rate and rhythm. No ectopy. LUNGS: Clear breath sounds to auscultation bilaterally. No wheezes, rales, or rhonchi. ABDOMEN: Soft, nontender, nondistended. Bowel sounds positive x4. NEUROLOGIC: Patient is awake, alert, oriented x3. No focal sensory or motor deficits. PSYCHIATRIC: Mood and affect are appropriate. MUSCULOSKELETAL: Ambulation and gait are steady. DERM: No rash. No petechiae or purpuric eruption. No skin changes visible at prior Vidaza injection site. LABORATORY No labs today. CBC from 11/15/18: WBC 5.0, ANC 3.6, hemoglobin 12.0, hematocrit 35.5%, platelets 237,000. CMP on that date revealed glucose at 278, improved from prior, and the rest of the CMP was largely unremarkable. PATHOLOGY Bone marrow biopsy on 11/01/18: Plasma cell myeloma, lambda restricted, involving approximately 15% of bone marrow cellularity. FISH: Positive for variant t(11;14), -13, and 16q-. The t(11;14) is associated with a standard risk disease in plasma cell myeloma. IMPRESSION AND PLAN Mr. Farris is a pleasant 68-year-old gentleman with the followin. Multiple myeloma: Bone marrow biopsy was done on 11/01/18 did reveal approximately 15% of plasma cell population with lambda restricted plasma cells in bone marrow. Also discussed his FISH results. These are noted above. Discussed results with patient and his today. Overall, this does not change treatment plan. PET scan did show numerous areas of disease involvement, and he is aware that we have added Zometa to his treatment plan. Plan is to give this monthly for at least three months, and then we will likely move this over to quarterly. 2. Velcade, Revlimid, and dexamethasone (VRd): Patient initiated Cycle #1 on 11/08/18. He will be receiving Day 15 of Cycle #1 later this week. So far, he has been tolerating treatment quite well. We will likely use bone surveys in the future to follow his disease and make sure it is not progressive. He is aware that our current plan is for four cycles of Velcade with radiation concurrently at this time, followed by observation. 3. Pain: Currently receiving radiation therapy concurrently to tumors in left ribs. Pain has significantly improved. 4. Perforated appendix with abscess: Currently, abdominal symptoms have resolved. Plan is to postpone appendectomy if possible. Dr. Hutton has discussed this with Dr. Hathaway. 5. Diabetes, recently worsened hyperglycemia: This has recently improved as he has now been bumped up to Lantus [address] units [address] day [address] Moody, his primary care physician. He will continue to monitor this with Dr. Moody. 6. I reviewed his case with Dr. Hutton in clinic today. 7. Patient will return to clinic on for Day 15 of Cycle #1. We should be following up with him for [id number] visit in approximately two weeks. [facility]
[2018-11-22 08:33] VITALS: BP 112/63
--- NOTE | 2018-11-26 12:13 | ONCOLOGY FOLLOW UP NOTE ---
EVENT DATE: November 26, 2018 CHIEF COMPLAINT Mr. Farris is a 68-year-old gentleman with multiple myeloma, bone-predominant disease. Recently initiated Velcade, Revlimid, and dexamethasone. He is three weeks into Cycle #1 and will be due for Day 22, Cycle #1 later this week. He is here for an acute add-on visit after coming in for daily radiotherapy and reporting significant rash with pruritus. HISTORY OF PRESENT ILLNESS Mr. Farris returns today for followup and chemotherapy education session for [facility]. He is a patient of Dr. Hutton, and Dr. Hutton has been involved in his care extensively while he was in [place] prior to diagnostic workup and labs. His labs look outstanding, but unfortunately, he has numerous areas of bone marrow involvement discovered on imaging with a PET scan. PET scan shows numerous other areas including a second growing painful area. Bone marrow biopsy on 11/02/18 revealed plasma cell myeloma, lambda restricted, involving 15% of bone marrow. FISH revealed positive -13q deletion and 16q- deletion, as well as variant t(11;14). The t(11;14) is associated with a standard risk disease in plasma cell myeloma. His creatinine has been elevated, and this, of course, may be another sign of multiple myeloma. His abdominal symptoms have subsided. At some point, he will likely need to have his appendix removed. After discovery of nonsecretory multiple myeloma, we believe that he needed to start treatment as soon as possible and postpone appendectomy until we have better control of his disease. We can then hopefully place him into remission. He has been initiated on radiotherapy to two painful areas including the left humerus and left ribs. His pain has improved. He is now able to roll over at night more comfortably. He was given a prescription for more Tramadol and has reported good relief from that. He has only taken about two doses since having this prescribed. His fatigue has improved. He becomes tired towards the end of the day but simply goes home from work and rests. His energy has increased, most noticeable on the days he takes his dexamethasone, which he likes. His appetite has been good. He has not had any nausea or vomiting. No significant constipation or diarrhea. No fevers or chills. He has a history of diabetic peripheral neuropathy, most noticeable in the lower extremities and feet. He had one episode of occasional tingling in his fingers but this then resolved. No other significant neuropathy in the hands. Lastly, he has a history of diabetes and follows up with his PCP, Dr. Moody. Blood sugars have been under better control now that his Lantus has been increased up to 15 units daily. He was here today for daily radiotherapy and mentioned that he had a significant rash which was slowly worsening. He believes he has had this rash now for a couple of weeks but did not report this previously as it was not as severe. He is reporting redness all over his back, lower extremities and arms, which is quite pruritic. There have been no open pustules, no pus. He has not changed any other medications or diet. ONCOLOGY HISTORY History begins in early 2018 when he was diagnosed with an abscess related to his appendix. He has not yet had the appendix removed, but the abscess was drained, and he is doing much better. He has no abdominal symptoms. During this workup, they found a lesion on the left rib that was lytic/blastic in appearance. His PSA was normal, and his extensive myeloma labs were also normal. A biopsy was done, however, and showed that this was a plasma cytoma. PET scan shows numerous other areas including a second growing painful area now. He now has a diagnosis of multiple myeloma, and we plan to use VRd for four cycles with radiation therapy, followed by observation. He initiated VRd on 11/08/18. PAST MEDICAL HISTORY 1. 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 2. Diabetes. 3. Elevated blood pressure/hypertension. 4. Perforated appendix in August 2018. FAMILY HISTORY Remarkable for diabetes in his mother. SOCIAL HISTORY Patient is and here with his significant other today. He has a son who is 31 years old. 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 No drug use or recreational drug use. ALLERGIES No known drug allergies. MEDICATIONS 1. Atorvastatin 20 mg daily. 2. Lantus 15 units q.a.m. 3. Lisinopril 20 mg daily. 4. Metformin 500 mg tablet, 1000 mg b.i.d. 5. Dexamethasone 4 mg tablets, 20 mg on days 1, 8, 15, and 22 out of a 28-day cycle. 6. Revlimid 25 mg on days 1 through 21 of a 28-day cycle. 7. Ondansetron 8 mg ODT one sublingual q.8 hours p.r.n. chemo-induced nausea or vomiting. REVIEW OF SYSTEMS CONSTITUTIONAL: He denies any recent fevers, chills or night sweats. No recent infections. Appetite has been good. HEENT: No vision changes. No tinnitus. No epistaxis. No mouth sores. CARDIOVASCULAR: No chest pain. No syncope or presyncope. No palpitations. RESPIRATORY: No cough, sputum production, or hemoptysis. No pleuritic chest pain. GASTROINTESTINAL: No abdominal pain, nausea, vomiting, diarrhea, constipation, bright red blood per rectum, or melena. All prior abdominal symptoms have resolved. Appetite has been great. GENITOURINARY: No dysuria, hematuria, or genitourinary discharge. MUSCULOSKELETAL: He has some degenerative-type pains, and he is currently receiving radiotherapy to the left proximal humerus and the left ribs. He has no new focal areas of pain. PSYCHIATRIC: Patient tells me is in good spirits. He denies any severe depression, severe anxiety, suicidal or homicidal ideation. He is having some difficulty coming to terms with being less active. 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 No easy bruising. DERM: Patient reports worsening rash, and reports this has been present for about a couple of weeks at least but didn't think to mention this as it wasn't pruritic or as widespread. It's recently spread to his legs and is now causing a lot of itching. He reports intense pruritus pretty much all over. He tells me that the rash or redness is most significant to his posterior trunk, bilateral lower extremities, back of legs more affected as well as his forearms bilaterally. He has used topical hydrocortisone cream and topical Benadryl on a couple of occasions. No suspicious lumps or bumps. He denies any visible skin reaction at the injection site from Vidaza. NEUROLOGIC: He has a history of diabetic peripheral neuropathy most noticeable in his lower extremities. This is unchanged. Otherwise, no headaches. No seizure like activity. ENDOCRINE: His blood sugars have been coming down. The remainder of a 12-point review of systems is performed today and is otherwise negative. PHYSICAL EXAMINATION VITAL SIGNS: Most recent weight 104.4 kg. T 97.0, P 72, R 16, BP 110/65, oxygen saturation 94% room air. GENERAL: In general, this is a pleasant 68-year-old gentleman who appears well hydrated, well nourished, is in good spirits, and is in no acute distress. HEAD: Normocephalic, atraumatic. EYES: Sclerae anicteric. ENT/MOUTH: No mucositis. No thrush. No significant nasal drainage. NECK: Supple. No lymphadenopathy. No JVD. CARDIOVASCULAR: Regular rate and rhythm. No ectopy. LUNGS: Clear breath sounds to auscultation bilaterally. No wheezes, rales, or rhonchi. ABDOMEN: Soft, nontender, nondistended. Bowel sounds positive x4. NEUROLOGIC: Patient is awake, alert, oriented x3. No focal sensory or motor deficits. PSYCHIATRIC: Mood and affect are appropriate. MUSCULOSKELETAL: Ambulation and gait are steady. DERM: Patient has a significant erythematous macular rash noted to his posterior trunk, bilateral anterior forearms, bilateral lower extremities with back of the knees to the lower calf noticeably erythematous. There are no pustules. No vesicles. This does not appear to be viral and does not follow any dermatomes. There is no petechiae or purpura. This is consistent with drug-induced rash, possibly from Revlimid. No skin changes visible at prior Vidaza injection sites. LABORATORY No labs today. PATHOLOGY Bone marrow biopsy on November 01, 2018: Plasma cell myeloma, lambda restricted, involving approximately 15% of bone marrow cellularity. FISH: Positive for variant t(11;14), -13, and 16q-. The t(11;14) is associated with a standard risk disease in plasma cell myeloma. IMPRESSION AND PLAN Mr. Farris is a pleasant 68-year-old gentleman with the followin. Multiple myeloma: Bone marrow biopsy was done on November 01, 2018 did reveal approximately 15% of plasma cell population with lambda restricted plasma cells in bone marrow. We reviewed his bone marrow biopsy results last week. PET scan did show numerous areas of disease involvement and he is aware that we have added Zometa to his treatment plan. Plan is to give Zometa monthly for at least three months and then we will likely move this over to quarterly dosing. 2. Velcade, Revlimid and dexamethasone (VRd): Patient has recently completed Day 15 of Cycle #1. He initiated Cycle #1 on November 08, 2018. He is due for Day 22 of Cycle #1 later this week. So far, he has been tolerating treatment well. 3. We will likely use bone surveys in the future to follow his disease and make sure this is not progressing. He is aware that our current plan is for four cycles of Velcade with radiation concurrently at this time, which will then be followed by observation. 4. Pain: Currently improved with radiotherapy to the left humerus and left ribs. He has used Tramadol on only a couple of occasions. 5. Perforated appendix with abscess: Currently, abdominal symptoms have resolved. We are postponing appendectomy if possible and Dr. Hutton has discussed this with Dr. Hathaway. 6. Diabetes, recently worsened hyperglycemia: Improved with Lantus up to 15 units per day, managed by his PCP, Dr. Moody. Patient will continue to follow up with PCP. 7. Rash: Grade 2. Discussed [id number] measures. Patient will start [id number] Benadryl 25 mg tablets and can use this every six hours p.r.n. I have asked him to take the first dose as soon as he leaves our office. If this does not prove useful, we can try prescription Atarax. I have also asked him to continue with hydrocortisone topically. He may also rotate that with Benadryl topical. Again, discussed measures with patient and how to use this. We can also try Triamcinolone topically if hydrocortisone and Benadryl do not help. 8. Patient did hold his Revlimid dose last night due to his rash. Patient is going to re-initiate Revlimid later tonight once he gets Benadryl on board. If Benadryl does not show any improvement in 24 hours, he is to call and let us know. He is due to complete Revlimid this and is aware that he will then have a seven day break. I am hopeful that the further out from Revlimid the better his rash will be. 9. Of note, patient has not started anti-viral therapy and is not on acyclovir and is not on Bactrim so this is not related to drug allergies or adverse effect related to Bactrim. We will re-evaluate starting those medications at his next visit. 10. Patient will return to clinic next week as scheduled. [facility]TDD
--- NOTE | 2018-11-27 09:03 | NUR ---
Phoned pt to inquire about pt hives. Pt had seen Cari Scott NP, on 11/26/18 and had been instructed to continue hydrocortisone cream and bendryl cream. He was also instructed to start 25 mg benadryl tabs Q6 prn. Pt states today that his hives are the same, that the creams do help the itching, and that he has taken the revlimid, which he held for one day. His last revlimid is to be on , and STATEMENT REQUEST CLERK told pt to take all revlimid unless hives get worse.
[2018-11-29 09:02] VITALS: BP 107/68
[2018-12-06 08:59] VITALS: BP 121/69
[2018-12-06] MEDS: LIDOCAINE/SOD BICARB 8.4% SYR ID PRN (10:34)
[2018-12-06] MEDS: NS(*) 0.9% 100 ML BAG 100 ML IVPB PRN (10:34)
[2018-12-06 10:47] VITALS: BP 111/73
[2018-12-10 15:59] VITALS: BP 105/63
--- NOTE | 2018-12-11 09:06 | [facility] ONCOLOGY NOTE ---
EVENT DATE: December 10, 2018 CHIEF COMPLAINT/REASON FOR VISIT Mr. Farris is a very pleasant 68-year old gentleman with multiple myeloma with bone predominant disease. HISTORY OF PRESENT ILLNESS Mr. Farris returns. I was extensively involved in his care while he was in [place] prior to transitioning to [place]. His labs look quite outstanding. However, he has numerous areas of bone involvement discovered on imaging with a PET scan. His bone marrow biopsy was done, which confirmed multiple myeloma. We have started therapy with VRd with a plan for four cycles followed by observation. He has seen Radiation Oncology as well. He is tolerating the first cycle of VRd quite well. He did develop a rash, which may be related to the Revlimid or the Velcade and this is very well controlled with once daily Benadryl. I think this is a very low risk step to control this while we are trying to proceed with 12 weeks of therapy. No fevers, chills neuropathy of any kind. No signs or symptoms concerning for blood clots. Overall, he is doing quite well. ONCOLOGY HISTORY History begins in early 2018 when he was diagnosed with an abscess related to his appendix. He has not yet had the appendix removed, but the abscess was drained, and he is doing much better. He has no abdominal symptoms. During this workup, they found a lesion on the left rib that was lytic/blastic in appearance. His PSA was normal, and his extensive myeloma labs were also normal. A biopsy was done, however, and showed that this was a plasma cytoma. PET scan shows numerous other areas including a second growing painful area now. He now has a diagnosis of multiple myeloma, and we plan to use VRd for four cycles with radiation therapy, followed by observation. PAST MEDICAL HISTORY 1. 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 2. Diabetes. 3. Elevated blood pressure/hypertension. 4. Perforated appendix in August 2018. FAMILY HISTORY Remarkable for diabetes in his mother. SOCIAL HISTORY Patient is and here with his significant other today. He has a son who is 31 years old. 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 No drug use or recreational drug use. REVIEW OF SYSTEMS CONSTITUTIONAL: No fevers, chills, significant weight change. HEENT: No headache, vision changes. CARDIOVASCULAR: No chest pain, dyspnea on exertion, edema. RESPIRATORY: No shortness of breath, wheeze, cough. GASTROINTESTINAL: No nausea, vomiting, diarrhea, constipation, abdominal pain. All prior abdominal symptoms have resolved. GENITOURINARY: No dysuria, hematuria. MUSCULOSKELETAL: No weakness, joint pains. PSYCHIATRIC: No anxiety, depression. HEMATOLOGIC: No bruising, bleeding. SKIN: No concerning rashes or lesions. He did have a rash that was macular papular across his body and pruritic when first starting VRd, controlled with Benadryl. Remainder of 14-point review of systems otherwise negative. PHYSICAL EXAMINATION VITAL SIGNS: Blood pressure 105/63, pulse 80, respiratory rate 16, temperature 97.4 Fahrenheit, oxygen saturation 92% on room air. Weight 103.1 kg. Pain 0/10. Fatigue 0/10. GENERAL: Stable condition, resting comfortably in the chair. HEENT: Normocephalic, atraumatic. CARDIOVASCULAR: Regular rate and rhythm. LUNGS: Clear to auscultation bilaterally. ABDOMEN: Soft, nontender, nondistended. SKIN: No concerning findings. Remainder of his physical exam otherwise unremarkable. IMPRESSION/REPORT/PLAN Mr. Farris is a very pleasant 68-year-old gentleman with the followin. Multiple myeloma with bone predominant disease. He is tolerating VRd extremely well. He has a rash which could be related to the Velcade or Revlimid. I do not believe it is related to the dexamethasone. This is well controlled with Benadryl so we will continue with no changes. I would like to complete the therapy and then have him follow up with Dr. Lopez's regarding his appendix. 2. Perforated appendix with abscess. Follow with Dr. Hathaway at the conclusion of therapy. 3. Bony disease related to #1. Continue the Zometa. I answered all of his many questions today. BILLING Return visit level 4. Total time 30 minutes, counseling time 20. MTDD
[2018-12-13 08:21] VITALS: BP 132/74
[2018-12-20 08:50] VITALS: BP 112/66
[2018-12-27 08:51] VITALS: BP 121/74
[2018-12-27 09:04] LABS: PLATELET COUNT, AUTOMATED 222 K/uL (150-450)
--- NOTE | 2018-12-27 12:21 | ONCOLOGY FOLLOW UP NOTE ---
EVENT DATE: December 27, 2018 CHIEF COMPLAINT Mr. Farris is here for ongoing followup regarding his multiple myeloma with bone predominant disease. HISTORY OF PRESENT ILLNESS Mr. Farris returns today for followup. He is a very pleasant 68-year old gentleman with multiple myeloma, bone-predominant disease. He recently initiated VRd (Velcade, Revlimid and dexamethasone). Dr. Hutton was involved in his care extensively while he was in [place] prior to diagnostic workup and labs. He has numerous areas of bone marrow involvement discovered on imaging with a PET scan. PET scan shows numerous other areas including a second growing painful area. Bone marrow biopsy done on November 02, 2018, confirmed multiple myeloma. Our plan is to treat with VRd x4 cycles followed by observation. He has also seen Radiation Oncology and completed radiotherapy to two painful areas, including the left humerus and left ribs. His pain has significantly improved as a result. He reports that his only complaint is fatigue, which typically does not hit him until mid morning or late in the day. 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 He tells me that he simply cuts his hours down and usually does not work any more than seven to eight hours. When he is tired, he rests. He has now completed nearly two cycles of VRd. He is scheduled for day 22, Cycle #2 tomorrow, which is his dexamethasone. He did develop a rash approximately midway into Cycle #1, which is likely related to the Revlimid or Velcade. This was very well controlled with once daily Benadryl. His rash has now completely resolved. This is likely very low risk step to control this as we are trying to proceed with 12 weeks of therapy. Otherwise, he denies any new symptoms. He is eating and drinking well. His appetite is stable. Again, no pain. He did take Tramadol a few weeks ago, although this made him tired, and he has not required it since. No fevers, chills or night sweats. No recent infections. He denies any neuropathy of any kind. No signs or symptoms concerning for blood clots. His diabetes is being managed by his PCP and he tells me that his insulin pen was recently increased up to 22 units. He is checking his blood sugars daily. ONCOLOGY HISTORY History begins in early 2018 when he was diagnosed with an abscess related to his appendix. He has not yet had the appendix removed, but the abscess was drained, and he is doing much better. He has no abdominal symptoms. During this workup, they found a lesion on the left rib that was lytic/blastic in appearance. His PSA was normal, and his extensive myeloma labs were also normal. A biopsy was done, however, and showed that this was a plasma cytoma. PET scan shows numerous other areas including a second growing painful area now. He now has a diagnosis of multiple myeloma, and we plan to use VRd for four cycles with radiation therapy, followed by observation. He initiated VRd on 11/08/18. PAST MEDICAL HISTORY 1. 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 2. Diabetes. 3. Elevated blood pressure/hypertension. 4. Perforated appendix in August 2018. SOCIAL HISTORY Patient is and here with his significant other today. He has a son who is 31 years old. 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 No drug use or recreational drug use. ALLERGIES No known drug allergies. MEDICATIONS 1. Atorvastatin 20 mg daily. 2. Lantus 15 units q.a.m. 3. Lisinopril 20 mg daily. 4. Metformin 500 mg tablet, 1000 mg b.i.d. 5. Dexamethasone 4 mg tablets, 20 mg on days 1, 8, 15, and 22 out of a 28-day cycle. 6. Revlimid 25 mg on days 1 through 21 of a 28-day cycle. 7. Ondansetron 8 mg ODT one sublingual q.8 hours p.r.n. chemo-induced nausea or vomiting. REVIEW OF SYSTEMS CONSTITUTIONAL: Patient denies any fevers, chills or night sweats. No recent infections. Appetite and weight are stable. HEENT: No vision changes. No tinnitus. No epistaxis. No mouth sores. No dysphagia or odynophagia. CARDIOVASCULAR: No chest pain, syncope or presyncope. RESPIRATORY: No shortness of breath, cough, sputum production or hemoptysis. No pleuritic chest pain. GASTROINTESTINAL: No abdominal pain, nausea, vomiting, constipation, diarrhea, bright red blood per rectum or melena. Appetite is stable. All prior abdominal symptoms have resolved. GENITOURINARY: No dysuria or hematuria. MUSCULOSKELETAL: No focal areas of pain. His left rib and left humerus pain has resolved status post radiotherapy. PSYCHIATRIC: He denies any severe anxiety, severe depression, suicidal or homicidal ideation. HEMATOLOGIC/LYMPHATIC: No free bleeding. No easy bruising. DERM: Patient's previous rash has completely resolved. He uses Benadryl tablets only once a day. NEUROLOGIC: He has a history of diabetic peripheral neuropathy, which has been most noticeable in his lower extremities. Otherwise, no new neuropathy related to treatment. No headaches or seizure like activity. ENDOCRINE: No heat or cold intolerance. He has some generalized fatigue, which has been quite manageable. His blood sugars have also been coming down. The remainder of a 12-point review of systems is performed today and is otherwise negative. PHYSICAL EXAMINATION VITAL SIGNS: Weight today 105.1 kg. T 97.8, P 63, R 16, BP 121/74, oxygen saturation 93% room air. Currently, rates pain at "0/10". Currently rates fatigue at "4 to 5/10". GENERAL: In general, this is a pleasant 68-year-old gentleman who appears well- hydrated, well-nourished and is in no acute distress. HEAD: Normocephalic, atraumatic. EYES: Sclerae anicteric. ENT/MOUTH: No mucositis. No thrush. No significant nasal drainage. NECK: Supple. No lymphadenopathy. No JVD. CARDIOVASCULAR: Regular rate and rhythm. No ectopy. LUNGS: Clear breath sounds to auscultation bilaterally. No wheezes, rales, or rhonchi. ABDOMEN: Soft, nontender, nondistended. Bowel sounds positive x4. NEUROLOGIC: Patient is awake, alert, oriented x3. No focal sensory or motor deficits. PSYCHIATRIC: Mood and affect are appropriate. MUSCULOSKELETAL: Ambulation and gait are steady. DERM: Patient no longer has any signs of rash. No petechiae or purpura. LABORATORY CBC today: WBC 3.5, ANC 1.9, hemoglobin 12.3, hematocrit 35.8%, platelets 222,000. CMP, which returned back after conclusion of our visit today, was unremarkable with exception of elevated glucose at 210, improved from previous 231 in patient with history of diabetes. Chloride minimally elevated at 108 with CO2 low at 20. LFTs normal. Albumin and protein level normal. Calcium normal at 9.5. PATHOLOGY Bone marrow biopsy on November 01, 2018: Plasma cell myeloma, lambda restricted, involving approximately 15% of bone marrow cellularity. FISH: Positive for variant t(11;14), -13, and 16q-. The t(11;14) is associated with a standard risk disease in plasma cell myeloma. IMPRESSION AND PLAN Mr. Farris is a pleasant 68-year-old gentleman with the followin. Multiple myeloma of bone-predominant disease. Confirmed with bone marrow biopsy on November 01, 2018, and PET scan showing numerous areas of disease involvement: Patient is currently on VRd, which we plan for four cycles, followed by observation. He is tolerating treatment quite well. He is towards the end of Cycle #2 and will be due for day 22, dexamethasone only, tomorrow. Currently, he is off Revlimid per VRd cycle. 2. Rash: Resolved at this time. Likely related to either Velcade or Revlimid and patient is aware that either one of these can cause rash. We do not feel this is related to dexamethasone and, again, we reviewed common side effects of VRd. He is using Benadryl one tablet per day and he may continue to do so. Again, at this time, rash is resolved. 3. Post completion of therapy, patient will then follow up with Dr. Hathaway regarding his appendix as he did present with a perforated appendix with abscess. 4. Bony disease: Patient is currently on Zometa, related to Cycle #1. We plan to give Zometa monthly for at least three months and then after this we will likely move over to quarterly dosing. He should at least receive concurrently with Cycles #1 to #3 with VRd. He is tolerating that well. 5. Pain: None at this time. Radiotherapy improved his pain significantly and he has not needed any Tramadol in several weeks. He is aware to notify us if this worsens or recurs. 6. Patient will continue on his current regimen as scheduled. He will be due next for Day 1, Cycle #3, with VRd next week on January 03, 2019. 7. Patient will keep his scheduled followup appointment with Dayan Martinez NP, as scheduled on January 10, 2019. MTDD
[~2019-01-03] VITALS: Ht 171.4 cm; Wt 104.1 kg
[~2019-01-03] MED LIST changes: +ALTEPLASE RECOMB 2 MG VIAL IVP PRN; +BORTEZOMIB 3.5 MG INJS SC ONE; +DEXTROSE 5%(*) 100 ML BAG 100 ML IVPB PRN; +DIPH-464 PO; +HEPARIN FLSH (PORT) 500 UN/5ML IVP PRN; +HYDR28OI11 TP; +MAGNESIUM SUL* 2 GM/50 ML IVPB 50 ML IVPB ONE; +NS(*) 0.9% 500 ML BAG 500 ML IV PRN; +WATER FOR INJ,STERILE 20 ML IVP PRN; +ZOLEDRONIC ACID 4 MG/5 ML VIAL 4 MG in NS(*) 0.9% 100 ML BAG 100 ML IVPB ONE
[2019-01-03 08:54] VITALS: BP 111/70
[2019-01-03 08:58] LABS: PLATELET COUNT, AUTOMATED 229 K/uL (150-450)
[2019-01-03] MEDS: LIDOCAINE/SOD BICARB 8.4% SYR ID PRN (10:10)
[2019-01-03] MEDS: NS(*) 0.9% 100 ML BAG 100 ML IVPB PRN (10:11)
[2019-01-03 10:26] VITALS: BP 109/69
== END ==
LOC: ONC 10-05 13:09 → SPU 10-22 13:30 → ONC 10-29 13:51 → SPU 11-09 08:20 → ONC 11-15 08:28
PROVIDERS: ATTEND Internal Medicine
DX: Z51.11 Encounter for antineoplastic chemotherapy (principal); C90.30 Solitary plasmacytoma not having achieved remission; K35.33 Acute appendicitis with perforation, localized peritonitis, and gangrene, with abscess; E11.9 Type 2 diabetes mellitus without complications; Z79.899 Other long term (current) drug therapy; M89.9 Disorder of bone, unspecified
CPT/HCPCS: 36415; 82232; 82784; 83615; 83735; 83883; 84100; 84160; 84165; 84550; 85025; 85027; 86334; 96365; 96366; 96401; G0463; J3475; J3489; J7050; J9041; 82040; 82247; 82310; 82374; 82435; 82565; 82947; 84075; 84132; 84155; 84295; 84450; 84460; 84520; 99202; 99212

== ENCOUNTER 2019-01-31 09:45 | Outpatient (RCR) | payer MEDICARE ==
[2015-09-23 10:52] VITALS: BMI 33.6
--- NOTE | 2018-11-12 14:47 | NUR ---
Spoke with Mr. Farris and his friend, Kellie, regarding pt's blood glucose levels. Pt stated that today his blood glucose was high at around 360, and that one day over the most recent weekend it had reached 500. Pt was advised on 11/08/18 and again today to f/u with his pcp, Dr. Moody, whom they could not get a hold of today. I phoned Dr. Moody's office on their behalf and left a voicemail. Per my discussion with ARMOR SENIOR SERGEANT, Cari Scott, I advised pt and his friend, Kellie, to go to ED or urgent care facility if his blood glucose is above 500. I also advised pt to not eat normally, but to avoid refined sugar, and to continue to drink plenty of fluids, which pt had been doing.
--- NOTE | 2018-12-06 10:53 | PT INITIAL EVALUATION ---
MEDICAL DIAGNOSIS: Multiple Myeloma TREATMENT DIAGNOSIS: Multiple Myeloma, Right Latissimus Dorsi Strain DATE OF ONSET: 12/06/18 SUBJECTIVE: Natalio Farris (Dean) is a 68 year old male presenting to oncology rehabilitation for education and evaluation with recent diagnosis of multiple myeloma. At this time pt is starting his second round of chemotherapy following radiation treatment to both his ribs and L proximal humerus where metastasis was found. Pt was diagnosed following appendiceal pain and damage which remains present and is to be addressed following chemotherapy competition. Pt currently reports no pain except improving pain on his R side that started after lifting and dumping a garbage can. Pt reports that pain was real sharp at first, but is slowly getting better. Pt reports his most limiting factor at this time is fatigue. 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 R SB: full with pain, L SB: minimal restrictions with stretch, B rotation: full with slight pain towards R side. Strength: UE MMT: ext: R 4-/5 with pain, L 5/5 Palpation: Pt is tender to palpation along the R lat muscle from mid portion extending to the axilla. Sensation: Pt has neuropathy in B toes secondary to diabetes which is well controlled. Pt has no numbness in fingers at this time. Mobility: ECOG Performance Status: grade 2 ASSESSMENT: Natalio Roque" presents with signs and symptoms consistent with multiple myeloma diagnosis with recent right latissimus dorsi strain. Pt received education about physical side effects of oncological intervention including fatigue, back pain, shoulder dysfunction, weakness, and neuropathy. Physical therapy is indicated for this patient to improve function with ADL's as impaired by the above listed deficits as well as maintain function with ongoing oncological intervention. Short Term Goals In 1 MO pt will have no R lat pain with ADL's for improved function with ADL's. In 2 MO pt will maintain ECOG performance status of grade 2 for maintained function with ADL's. In 2 MO pt will have full lumbar/thoracic ROM without pain for improved function with ADL's. In 4 MO pt will maintain ECOG performance status of grade 2 for maintained function with ADL's. Patient's Goals Maintain function with ADL's with ongoing oncological intervention. PLAN: Patient to be seen for Manual Therapy/STM/MET Strengthening/condition Ice/Heat Range of Motion Spinal Stabilization Ultrasound Stretching Iontophoresis Neuromuscular Re-ed Closed Chain Program Electrical Stim Posture/Body mechanics Gait Trg/Balance Trg Biofeedback Home Exercise Program Mech./Manual Traction Therapeutic Activities Pelvic Floor 1x/Week for 4 Months If you have any questions, comments, or concerns about this report or plan, please contact me at . Thank you, Stefani Harrington, PT, DPT, CLT MTDD
[~2019-01-31 09:45] MED LIST changes: -ALTEPLASE RECOMB 2 MG VIAL IVP PRN; -BORTEZOMIB 3.5 MG INJS SC ONE; -DEXTROSE 5%(*) 100 ML BAG 100 ML IVPB PRN; -HEPARIN FLSH (PORT) 500 UN/5ML IVP PRN; -MAGNESIUM SUL* 2 GM/50 ML IVPB 50 ML IVPB ONE; -NS(*) 0.9% 500 ML BAG 500 ML IV PRN; -WATER FOR INJ,STERILE 20 ML IVP PRN; -ZOLEDRONIC ACID 4 MG/5 ML VIAL 4 MG in NS(*) 0.9% 100 ML BAG 100 ML IVPB ONE
--- NOTE | 2019-02-27 07:20 | PT PLAN OF CARE ---
Physician: Kyra Scott, BATCH WEIGHER, CLINICAL SCIENCE LIAISON Patient is being seen: 1x/3weeks Therapist: Stefani Harrington, PT, DPT, CLT Medical Diagnosis: Multiple Myeloma Treatment Diagnosis: Multiple Myeloma, Right Latissimus Dorsi Strain Date of Onset: 12/06/18 Date of Initial Evaluation: 12/06/18 Date patient was last seen: 01/31/19 Number of treatments: 2 Number of cancellations/No shows: 0 INTERVENTIONS: Manual Therapy/STM/MET Strengthening/condition Ice/Heat Range of Motion Spinal Stabilization Ultrasound Stretching Iontophoresis Neuromuscular Re-ed Closed Chain Program Electrical Stim Posture/Body mechanics Gait Trg/Balance Trg Biofeedback Home Exercise Program Mech./Manual Traction Therapeutic Activities Pelvic Floor GOALS: In 1 MO pt will have no R lat pain with ADL's for improved function with ADL's. In 2 MO pt will maintain ECOG performance status of grade 2 for maintained function with ADL's. In 2 MO pt will have full lumbar/thoracic ROM without pain for improved function with ADL's. In 4 MO pt will maintain ECOG performance status of grade 2 for maintained function with ADL's. PATIENT'S GOAL: Maintain function with ADL's with ongoing oncological intervention. Status of Patient's Goals: MET Patient Compliance: Good Prognosis: Good Reasons for discharge from therapy: "Thomas" is to discharge from physical therapy at this time secondary to completion of oncology interventions as well as completion of 4/4 functional goals. At the time of discharge pt reported no pain and had full thoracic and scapular ROM. Latissimus dorsi strain showed full recovery without any lingering pain or restrictions with occupational duties. Upon discharge pt is to continue with HEP for UE strength and postural strengthening for maintenance of function and seek further PT if any deficits or lingering side-effects arise. ROM: UE ROM: WFL B without pain Thoracic ROM: Full without pn. Strength: UE MMT: L 5/5 Mobility: ECOG Performance Status: grade 2 If you have any questions, please feel free to contact me at [phone]. Thank you, Stefani Harrington, PT, DPT, CLT MTDD
== END 2019-03-06 ==
LOC: PT 09:45
PROVIDERS: ATTEND Nurse Practitioner
DX: S46.811A Strain of other muscles, fascia and tendons at shoulder and upper arm level, right arm, initial encounter (principal); C90.00 Multiple myeloma not having achieved remission; X50.0XXA Overexertion from strenuous movement or load, initial encounter
CPT/HCPCS: 97162